=== PATIENT | male | born 1955 | race Caucasian/White ===

== ENCOUNTER 2017-09-28 22:58 | Inpatient (IN) | payer OTHER ==
[~2017-09-28] VITALS: Ht 185.4 cm; Wt 103.7 kg
--- NOTE | ~2017-09-28 | HC ---
[facility] [address] [place] [address] CONSULTATION Name: PLACIDO BERMUDEZ Room #: 351-P [facility] IN M.R.#: [id number] Admission: 09/29/17 Attend Phys: Andrade Nicole MD Discharge: Date of : 55 Report #: [id number] THIS REPORT FOR: //name// CC: Andrade Nicole Barry Akkulugari DATE OF SERVICE: 09/29/2017 CHIEF COMPLAINT: Multiple lower extremity ulcerations. HISTORY OF PRESENT ILLNESS: This is a 62-year-old male patient who presents from a local nursing care facility. He has sepsis type picture with multiple ulcerations to his lower extremities and gluteal region. He has a history of cardiac arrest in 02/2017 with a history of diabetes, COPD, congestive heart failure, atrial fibrillation. He had a previous spinal cord injury resulting in paraplegia. He has been bedridden. He denies any current fever or chills at this time. He is aware of the ulcerations, denies any significant pain. PAST MEDICAL HISTORY: Positive for history of cardiac arrest in 02/2017, COPD, congestive heart failure, atrial fibrillation, spinal cord injury in 2008, history of depression, constipation, gout, benign prostatic hypertrophy, neuropathy, arthritis, acute kidney injury, insomnia, depression, gastroesophageal reflux disease, hypertension. SOCIAL HISTORY: The patient has a significant history of smoking, currently smokes daily. Denies any alcohol use. FAMILY HISTORY: Noncontributory. REVIEW OF SYSTEMS: CONSTITUTIONAL: The patient denies fever or chills currently. ENT: The patient denies earache, nasal drainage or sore throat. EYES: The patient denies visual changes, redness or drainage. PULMONARY: The patient denies cough, shortness of breath. GASTROINTESTINAL: The patient denies nausea or abdominal pain. DERMATOLOGIC: The patient is aware of extensive ulcerations to both lower extremities. Other systems in a 14-point review of systems are negative. PHYSICAL EXAMINATION: VITAL SIGNS: At this time include pulse 86, respiration 20, blood pressure 143/62, and temperature 98.4. GENERAL: This is a well-developed, well-nourished male patient who appears to be in some discomfort. HEENT: Head normocephalic. [address] [address] CONSULTATION Name: PLACIDO BERMUDEZ Room #: 351-P ADM IN M.R.#: [id number] Admission: 09/29/17 Attend Phys: Andrade Nicole MD Discharge: Date of : 55 Report #: [id number] NECK: Supple. LUNGS: Diminished. HEART: Regular. ABDOMEN: Soft, nontender. EXTREMITIES: Demonstrate what appeared to be stage 4 pressure ulceration of the right gluteal region, multiple superficial ulcerations of the right lower leg, left lower leg, left heel, and what appears to be a stage 4 pressure ulceration of the left buttocks, as well as superficial ulcerations to the right anterior foot. He has significant cellulitic changes and extensive drainage from these areas. CLINICAL IMPRESSION: 1. Stage 4 pressure ulcerations of the buttocks and bilaterally, multiple superficial ulcerations of lower extremities, stage 3 pressure ulcer of the left heel. 2. Severe protein calorie malnutrition. 3. History of congestive heart failure. 4. Cellulitis, bilateral lower extremities. 5. Diabetes mellitus. RECOMMENDATIONS: At this point in time, the patient will need to be placed on the low air loss mattress, every 2 hour turning, repositioning. We will recommend gentamicin ointment with Xeroform gauze to all open areas. He will need to be bathed and get some of the crusted material off of his skin. He may benefit from some topical AmLactin. We will review this following getting him cleaned up a little bit. I think he will require surgical debridement. We may wish to also consider diverting colostomy and PEG tube placement to address his severe malnutrition. He will need aggressive nutritional support to maintain a maximized wound healing, as well as the good glycemic control. We will need Prevalon boots for pressure prophylaxis, both lower extremities. All questions have been answered. I appreciate being asked to see him in consultation. <ELECTRONICALLY SIGNED> By: Chandrakant Potter MD 09/30/17 0757 [id number] [id number] Chandrakant Potter MD /nt
--- NOTE | ~2017-09-28 | HC ---
[facility] [address] [place] [address] CONSULTATION Name: PLACIDO BERMUDEZ Room #: 236-P ADM IN M.R.#: [id number] Admission: 09/29/17 Attend Phys: Andrade Nicole MD Discharge: Date of : 55 Report #: [id number] THIS REPORT FOR: //name// CC: Andrade Mccarthym Akkulugari DATE OF SERVICE: 10/05/2017 TYPE OF REPORT: Pulmonary consultation. REFERRING PHYSICIAN: Andrade Nicole M.D. REASON FOR REFERRAL: Postop respiratory failure. HISTORY OF PRESENT ILLNESS: The patient is a 62-year-old white male with multiple medical problems including decubitus wounds, now status post surgery. He has failed to wean from mechanical ventilation. A pulmonary consultation was requested. Earlier today, the patient underwent excision and debridement of decubitus wounds. He was found to have stage 3 bilateral ischial tuberosity decubitus ulcer, bilateral venous stasis ulcers. Intraoperatively, the patient had a hemodynamic instability along with a cardiac arrest. He was resuscitated in the operating room. He was then stabilized. Portable chest x-ray shows a mild vascular congestion, cardiomegaly. Findings suggest heart failure. Presently sedated. PAST MEDICAL HISTORY: Notable for history of chronic lower extremity wounds, stage 4 gluteal ulcer, atrial fibrillation, history of heart failure, COPD, diabetes mellitus, past history of cardiac arrest, history of spinal cord injury, gout, benign prostatic hypertrophy, depression, osteoarthritis, history of chronic kidney disease, depression, gastroesophageal reflux disease and hypertension. PAST SURGICAL HISTORY: As mentioned above including colostomy with reversal back in 1998 for history of diverticulitis. ALLERGIES: None to medications. MEDICATIONS: List reviewed, is in the MAR. HOME MEDICATIONS: Include Colace, magnesium citrate, trazodone, vancomycin, gentamicin, citalopram, Lovenox, insulin, fluconazole, vitamin C, aspartame, [facility] [address] [place] [address] CONSULTATION Name: PLACIDO BERMUDEZ Room #: 236-P [facility] IN [facility]#: [id number] Admission: 09/29/17 Attend Phys: Andrade Nicole MD Discharge: Date of : 55 Report #: [id number] digoxin, diltiazem, iron sulfate, Lasix, hydrocodone, metoprolol, multivitamins, Zosyn, tamsulosin, Protonix, baclofen, diclofenac, gabapentin, zinc sulfate and albuterol. FAMILY HISTORY: Noncontributory. SOCIAL HISTORY: The patient smokes less than a pack a day. He is a resident at [facility]. No alcohol use. REVIEW OF SYSTEMS: As mentioned above, otherwise unable to obtain history as the patient is intubated. PHYSICAL EXAMINATION: GENERAL: He is sedated. VITAL SIGNS: Temperature is 97 degrees Fahrenheit, pulse is 80, respiratory rate is 16, blood pressure 130/80 mmHg and saturation 92%. HEENT: Unremarkable. NECK: Supple. CHEST: Breath sounds are fair bilaterally without any wheezes. Few scattered crackles bilaterally. CARDIOVASCULAR: Normal S1 and S2. There are no murmurs or gallop. There is no JVD. There is no carotid bruit. Pulses are 2+/4+ bilaterally. ABDOMEN: Soft. No masses felt. GENITOURINARY: Deferred. RECTAL: Deferred. EXTREMITIES: Notable for chronic stasis dermatitis changes in the lower extremities with multiple wounds. NEUROLOGICAL: Deferred. RADIOLOGICAL DATA: Chest x-ray shows mild bibasilar interstitial infiltrates, cardiomegaly and pulmonary vascular congestion. LABORATORY DATA: Arterial blood gas earlier today showed pH 7.20, pCO2 of 67 and pO2 86 on 100% FiO2. Electrolytes are normal on 10/03/2017. Hemoglobin 9; WBC 11,100 and platelets are normal. Albumin 2.0. IMPRESSION: 1. Respiratory failure in this 62-year-old white male status post decubitus wound surgery. Intraoperatively, the patient developed cardiac arrest. Chest x-ray suggests heart failure. We will defer weaning until tomorrow. 2. Severe peripheral artery disease, multiple nonhealing lower extremity wounds, decubitus wounds involving the sacrum, stage 4. 3. Permanent atrial fibrillation, anticoagulation on hold. 4. Recent echocardiogram showed ejection fraction is normal, normal left ventricular function but dilated right and left atrium [place] [address] CONSULTATION Name: PLACIDO BERMUDEZ Room #: 236-P ADM IN M.R.#: [id number] Admission: 09/29/17 Attend Phys: Andrade Nicole MD Discharge: Date of : 55 Report #: [id number] 5. Hypertension. 6. Diabetes mellitus type 2. 7. History of chronic obstructive pulmonary disease, severity unknown. 8. Gastroesophageal reflux disease. 9. History of depression. RECOMMENDATIONS: We will continue mechanical ventilation, reassess in the morning. We would also consider gentle diuresis. Cardiology has been consulted regarding his intraoperative cardiac arrest. Echocardiogram finding noted. The patient is suspected to have CO2 embolism as a cause. CT head was unremarkable. DVT and GI prophylaxis recommended. Bronchodilators will be initiated for his COPD. Thank you for this consultation. <ELECTRONICALLY SIGNED> By: Martinez Kasper MD 10/07/17 1713 1533 [id number] Martinez Kasper MD /nt
--- NOTE | ~2017-09-28 | HC ---
[facility] [address] [address] CONSULTATION Name: PLACIDO MONTENEGRO Room #: 351-P ADM IN M.R.#: [id number] Admission: 09/29/17 Attend Phys: Andrade Nicole MD Discharge: Date of : 55 Report #: [id number] THIS REPORT FOR: //name// CC: Andrade Nicole Barry Akkulugari DATE OF SERVICE: 09/29/2017 Infectious Disease Consultation ATTENDING PHYSICIAN: Placido Montenegro. REASON FOR CONSULTATION: HISTORY OF PRESENT ILLNESS: A 62-year-old white man with decubitus ulceration in gluteal area and the left lower extremity. He is admitted through the emergency room with complaint of increasing weakness. PAST MEDICAL HISTORY: 1. COPD 2. Congestive heart failure. 3. Chronic atrial fibrillation. 4. Spinal cord injury in 2008 with chronic disease and decubitus ulceration, left lower extremity and gluteal area, stage 4, on the right. ALLERGIES: None listed. MEDICATIONS: The patient is on treatment with insulin glargine, citalopram, enoxaparin, hydrocodone bitartrate p.r.n., potassium chloride supplementation, ascorbic acid, multivitamin with mineral, lactobacillus acidophilus, furosemide, venlafaxine, trazodone, diltiazem, metoprolol, cholestyramine, digoxin, ferrous sulfate, tamsulosin, vancomycin 1 gram IV every 8 hours, Zosyn 3.37 grams IV every 8 hours, zinc sulfate, pantoprazole, gabapentin, diclofenac, baclofen p.r.n., glucose Glucagon. SOCIAL HISTORY: See H and P, old records. FAMILY HISTORY: See H and P, old records. REVIEW OF SYSTEMS: As above and see ER records. PHYSICAL EXAMINATION: GENERAL: Chronically ill-appearing white man. VITAL SIGNS: Temperature 98.1, pulse 93, respirations 18, BP 107/47. On admission, it was as low as 73/36. HEENT: Pupils reactive. Mouth: Severe periodontal disease. [facility] [address] [place] [address] CONSULTATION Name: PLACIDO MONTENEGRO Room #: 351- ADM IN M.R.#: [id number] Admission: 09/29/17 Attend Phys: Andrade Nicole MD Discharge: Date of : 55 Report #: [id number] mucous membranes. NECK: Supple. LUNGS: Clear. HEART: S1, S2. Irregular rhythm. No murmur or aortic focus. ABDOMEN: Surgical scars of previous surgery for diverticulitis and colostomy takedown. BACK: Stage 1 to 2 decubitus left gluteal area, stage 3 to 4 decubitus right gluteal area. EXTREMITIES: Reveal flexure contracture at the knee levels and chronic superficial ulcerations, left lower extremities, extensive lesions of gluteal and groin areas. NEUROLOGIC: Paraparesis, paraplegia. LABORATORY DATA: Sodium 133, potassium 4.5, BUN 10, creatinine 0.7, glucose 186. Albumin 2.2. WBC on admission 38712, on repeat today 58538, hemoglobin 9.1 g/dL, platelets [id number]. MICROBIOLOGY DATA: The decubitus and blood cultures are negative or pending at the time of this dictation. IMAGING DATA: Pelvis x-rays were obtained. Inferior vena cava filter: No acute process. Chest x-ray: Right basilar atelectasis, infiltrate, and cardiomegaly. ASSESSMENT: 1. Stage IV right gluteal decubitus, stage 2 left gluteal decubitus, superficial ulceration, left leg. 2. Question right basilar atelectasis, infiltrate. 3. Malnutrition. 4. Leukocytosis. 5. Anemia of chronic disease. SUGGESTIONS: Recommend continued local wound care, vacuum device per wound care team. Continue vancomycin and Zosyn while awaiting culture results. Add Diflucan orally and Lotrisone cream topically b.i.d. Dr. Nicole, thank you for requesting my suggestions. <ELECTRONICALLY SIGNED> By: Dipak Emmanuel MD 09/30/17 1017 1239 0244 Dipak Emmanuel MD /nt
--- NOTE | ~2017-09-28 | EKG ---
[address] [place] [address] ELECTROCARDIOGRAM REPORT Name: PLACIDO BERMUDEZ Room #: 351-P ADM IN M.R.#: [id number] Admission: 09/29/17 Attend Phys: Andrade Nicole MD Discharge: Date of : 55 Report #: [id number] THIS REPORT FOR: //name// [facility] Test Date: 2017-09-30 Test Time: 14:11:33 Pat Name: PLACIDO BERMUDEZ Department: Room: 351 P Gender: M Insurance Claims Clerk: Florian HITCHCOCK : 1955 Requested By: Phil Red Order Number: [id number] MD: Desean Werner Measurements Intervals [place] Rate: 69 P: [place]: QRS: 2 QRSD: 92 T: 241 QT: 345 QTc: 370 Interpretive Statements Atrial fibrillation Borderline low voltage, extremity leads Nonspecific ST segment abnormality Compared to ECG 09/28/2017 23:26:38 no significant change was found Electronically Signed On 10-01-2017 8:44:54 CDT by Desean Werner [email or web address] <ELECTRONICALLY SIGNED> By: Desean Werner MD, [facility] 10/01/17 0844 1411 1411 Desean Werner MD, [facility] /EPI
--- NOTE | ~2017-09-28 | EKG ---
[address] [place] [address] ELECTROCARDIOGRAM REPORT Name: PLACIDO BERMUDEZ Room #: 349-I ADM IN M.R.#: [id number] Admission: 09/29/17 Attend Phys: Andrade Nicole MD Discharge: Date of : 55 Report #: [id number] THIS REPORT FOR: //name// [facility] ED Test Date: 2017-09-28 Test Time: 23:26:38 Pat Name: PLACIDO BERMUDEZ Department: Room: 349 Gender: M Tongue And Quarter Stitcher: ANTHONY : 1955 Requested By: Darlin Burgess Order Number: [id number] MD: Desean Werner Measurements Intervals [place] Rate: 88 P: [place]: QRS: 6 QRSD: 104 T: 177 QT: 328 QTc: 397 Interpretive Statements Atrial fibrillation Low voltage, precordial leads Nonspecific repol abnormality, diffuse leads No previous ECG available for comparison Electronically Signed On 09-29-2017 7:51:22 CDT by Desean Werner [email or web address] <ELECTRONICALLY SIGNED> By: Desean Werner MD, [facility] 09/29/17 0751 D: 08/2325 25 Desean Werner MD, FACC /EPI
--- NOTE | ~2017-09-28 | 2DMMODE ---
[facility] [address] [place] [address] 2 D/M-MODE ECHOCARDIOGRAM Name: PLACIDO BERMUDEZ Room #: 351-P ADM IN .R.#: [id number] Admission: 09/29/17 Attend Phys: Andrade Nicole MD Discharge: Date of : 55 Date of Service: 09/30/17 1537 Report #: [id number] THIS REPORT FOR: //name// APPROVED REPORT Study performed: 09/30/2017 14:17:03 EXAM: Comprehensive 2D, Doppler, and color-flow Echocardiogram Patient Location: Bedside Room #: 351 Status: routine BSA: 2.23 HR: 68 bpm BP: 126/73 mmHg Other Information Study Quality: Adequate/Technically Difficult Technically limited study due to Very limited patient mobility. Indications Congestive Heart Failure COPD Diabetes Atrial Fibrillation Hypertension/HDD 2D Dimensions RVDd: 41.13 mm LVEF(%): 51.88 (>50%) IVSd: 16.39 (7-11mm) LVOT Diam: 21.20 (18-24mm) LVDd: 47.91 mm PWd: 16.86 (7-11mm) Ascending Ao: 35.08 (22-36mm) LVDs: 35.19 (25-40mm) Aortic Root: 33.22 mm IVC: 38.00 mm Wang's LVEF: 51.88 % Volumes Left Atrial Volume (Systole) Single Plane 4CH: 126.51 mL Single Plane 2CH: 152.45 mL LA ESV Index: 68.00 mL/m2 Aortic Valve AoV Peak Sincere.: 2.40 m/s AO Peak Gr.: 23.13 mmHg LVOT Max P.84 mmHg AO Mean Gr.: 10.27 mmHg LVOT Mean P.48 mmHg [facility] [place] [address] 2 D/M-MODE ECHOCARDIOGRAM Name: BERMUDEZPLACIDO Room #: 351-P [facility] IN M.R.#: [id number] Admission: 09/29/17 Attend Phys: Andrade Nicole MD Discharge: Date of : 55 Date of Service: 09/30/17 1537 Report #: [id number] AO V2 Mean: 1.42 m/s LVOT Max V: 1.31 m/s AO V2 VTI: 42.72 cm LVOT Mean V: 0.84 m/s CHRIS (VTI): 2.08 cm2 LVOT V1 VTI: 25.20 cm CHRIS Vmax: 1.91 cm2 SV (LVOT): 88.86 mL Mitral Valve MV Decel. Time: 215.02 ms MV E Max Sincere.: 1.41 m/s IVRT: 55.36 ms Pulmonary Valve PV Peak Sincere.: 1.37 m/s PV Peak Gr.: 7.56 mmHg Tricuspid Valve TR Peak Sincere.: 3.18 m/s RAP Estimate: 15.00 mmHg TR Peak Gr.: 40.38 mmHg PA Pressure: 55.00 mmHg Left Ventricle The left ventricle is normal size. Moderate concentric left ventricular hypertrophy. The left ventricular systolic function is normal. The left ventricular ejection fraction is within the normal range. LVEF is 60-65%. This study is not technically sufficient to allow evaluation of the LV diastolic function due to atrial fibrillation. Right Ventricle Right ventricle is dilated. The right ventricular systolic function is normal. Atria Left atrium is severely dilated. Right atrium is severely dilated. Aortic Valve Aortic valve is mildly calcified. Trace aortic regurgitation. There is mild valvular aortic stenosis. Calculated aortic valve area is 1.9 cm2 with maximum pressure gradient of 10 mmHg and mean pressure gradient of 23 mmHg. Mitral Valve Mild mitral annular calcification. Mild mitral regurgitation. No evidence of mitral valve stenosis. Tricuspid Valve [facility] [address] [place] [address] 2 D/M-MODE ECHOCARDIOGRAM Name: PLACIDO BERMUDEZ Room #: 351-P [facility] IN ..#: [id number] Admission: 09/29/17 Attend Phys: Andrade Nicole MD Discharge: Date of : 55 Date of Service: 09/30/17 1537 Report #: [id number] The tricuspid valve is normal in structure. Mild to moderate tricuspid regurgitation. PAP is estimated at 55 mmHg. Pulmonic Valve Pulmonic valve is not well visualized. Trace to mild pulmonic regurgitation. Great Vessels The aortic root is normal in size. IVC is dilated and collapses <50% with inspiration. Pericardium There is no pericardial effusion. <Conclusion> The left ventricle is normal size. LVEF is 60-65%. Right ventricle is dilated. The right ventricular systolic function is normal. Left atrium is severely dilated. Right atrium is severely dilated. Aortic valve is mildly calcified. Trace aortic regurgitation. There is mild valvular aortic stenosis. Calculated aortic valve area is 1.9 cm2 with maximum pressure gradient of 10 mmHg and mean pressure gradient of 23 mmHg. Mild mitral annular calcification. Mild mitral regurgitation. The tricuspid valve is normal in structure. Mild to moderate tricuspid regurgitation. PAP is estimated at 55 mmHg. Pulmonic valve is not well visualized. Trace to mild pulmonic regurgitation. There is no pericardial effusion. <ELECTRONICALLY SIGNED> By: Jordy Bird MD 09/30/17 1537 1537 1537 Jordy Bird MD /INF
--- NOTE | ~2017-09-28 | 2DMMODE ---
[address] [address] 2 D/M-MODE ECHOCARDIOGRAM Name: PLACIDO BERMUDEZ Room #: 236-P ADM IN M.R.#: [id number] Admission: 09/29/17 Attend Phys: Andrade Nicole MD Discharge: Date of : 55 Date of Service: 10/05/17 1256 Report #: [id number] THIS REPORT FOR: //name// APPROVED REPORT Study performed: 10/05/2017 11:43:35 EXAM: Limited 2D, Doppler, and color-flow Echocardiogram Patient Location: OR Status: STAT BSA: 2.28 Rhythm: Atrial Fibrillation Other Information Study Quality: Fair Indications STAT echo in OR to look for air in right atrium. Status post CODE. Left Ventricle The left ventricle is normal size. Air bubbles noted in left ventricle. Mild concentric left ventricular hypertrophy. Left ventricular systolic function is normal. Right Ventricle Right ventricle is dilated. Atria Left atrium is dilated. Air bubbles noted in left atrium. No evidence of PFO with color doppler. Right atrium is dilated. Air bubbles noted in right atrium. Aortic Valve The aortic valve was not visualized. Mitral Valve Mild mitral annular calcification. Tricuspid Valve The tricuspid valve is normal in structure. Pericardium There is no pericardial effusion. [address] [address] 2 D/M-MODE ECHOCARDIOGRAM Name: PLACIDO BERMUDEZ Room #: 236-P ADM IN M.R.#: [id number] Admission: 09/29/17 Attend Phys: Andrade Nicole MD Discharge: Date of : 55 Date of Service: 10/05/176 Report #: [id number] Critical Notification Critical Value: Yes Physician Notified Date: 10/05/2017 Time: 12:55 <Conclusion> Limited/abbreviated study Left ventricular systolic function is normal. Right ventricle is dilated and hypokinetic Both atria are dilated. Spontaneous contrast noted in all four chambers Mild mitral annular calcification. There is no pericardial effusion. <ELECTRONICALLY SIGNED> By: Desean Werner MD, FACC 10/05/17 1256 1256 55 Desean Werner MD, FACC /INF
[2017-09-28 23:00] VITALS: BP 73/36
[2017-09-29 00:06] LABS: HEMOGLOBIN 10.2 gm/dL (14.0-18.0); MCH 23.9 pg (26.0-34.0); MCV 77.1 fL (80.0-100.0); PLATELET COUNT 495 thou/uL (150-400); RBC 4.28 mil/uL (4.50-6.00); RDW 18.5 % (10.5-14.5); WBC 20.8 thou/uL (4.0-11.0)
[2017-09-29 00:15] LABS: ANION GAP 8 mmol/L (7-16); BUN 10 mg/dL (7-18); CALCIUM 9.1 mg/dL (8.5-10.1); CHLORIDE 99 mmol/L (98-107); CO2 25 mmol/L (21-32); CREATININE 0.7 mg/dL (0.7-1.3); GLUCOSE 116 mg/dL (74-106); POTASSIUM 4.2 mmol/L (3.5-5.1); SODIUM 132 mmol/L (136-145)
[2017-09-29 00:24] LABS: ABSOLUTE NEUTROPHILS 18.5 thou/uL (1.4-8.2); ANISOCYTOSIS 2+; HYPOCHROMASIA 1+; POLYCHROMASIA 1+
[2017-09-29 00:25] LABS: TROPONIN-I <0.06 ng/mL (<0.06)
[2017-09-29 01:03] LABS: ALBUMIN 2.2 g/dL (3.4-5.0); DIRECT BILIRUBIN 0.2 mg/dL (<0.1-0.3); TOTAL BILIRUBIN 0.5 mg/dL (<0.1-1.0); TOTAL PROTEIN 7.9 g/dL (6.4-8.2)
[2017-09-29] MEDS ORDERED: BUTRANS1 EAC1 TD (02:19)
[2017-09-29] MEDS ORDERED: ACIDOPHILUS1 EAC4 PO (02:19)
[2017-09-29] MEDS ORDERED: DIGOXIN250 MCG PO (02:20)
[2017-09-29] MEDS ORDERED: CELEXA20 MG PO (02:20)
[2017-09-29] MEDS ORDERED: LASIX 20 MG TAB20 MG PO (02:21)
[2017-09-29] MEDS ORDERED: DILTIAZEM HCL90 MG PO (02:21)
[2017-09-29] MEDS ORDERED: CENTRUM SILVER1 EAC4 PO (02:22)
[2017-09-29] MEDS ORDERED: INCRUSE ELLI62.5 MCG IH (02:22)
[2017-09-29] MEDS ORDERED: POTASSIUM20 PO (02:23)
[2017-09-29] MEDS ORDERED: VITAMINC500 PO (02:23)
[2017-09-29] MEDS ORDERED: QUESTRAN PACKET4 GM PO (02:24)
[2017-09-29] MEDS ORDERED: FLORANEX TABLE1 EACH PO (02:24)
[2017-09-29] MEDS ORDERED: PROTONIX40 M4 PO (02:25)
[2017-09-29] MEDS ORDERED: LOPRESSOR25 PO (02:25)
[2017-09-29] MEDS ORDERED: IRON325 PO (02:26)
[2017-09-29] MEDS ORDERED: NEURONTIN 300300 M1 PO (02:26)
[2017-09-29] MEDS ORDERED: LIORESAL 10 MG10 MG PO (02:26)
[2017-09-29] MEDS ORDERED: TRAZODONE HCL100 MG PO (02:27)
[2017-09-29] MEDS ORDERED: FLOMAX0.4 MG PO (02:27)
[2017-09-29] MEDS ORDERED: BENADRYL25 MG PO (02:27)
[2017-09-29] MEDS ORDERED: ONDANSETRON HCL4 M2 PO (02:28)
[2017-09-29] MEDS ORDERED: LOPERAMIDE 2 MG2 M1 PO (02:28)
[2017-09-29] MEDS ORDERED: EFFEXOR XR75 MG PO (02:29)
[2017-09-29] MEDS ORDERED: NORCO 5-325 TA1 EACH PO (02:30)
[2017-09-29] MEDS ORDERED: LEVSIN0.125 MG PO (02:31)
[2017-09-29] MEDS ORDERED: ALBUTEROL2.5 MG/31 INH (02:32)
[2017-09-29] MEDS ORDERED: LEVEMIR SUBQ (02:32)
[2017-09-29] MEDS ORDERED: NOVOLOG100 UNIT/1 SUBQ (02:33)
[2017-09-29] MEDS ORDERED: VOLTAREN GEL 1100 G2 TOP (02:34)
[2017-09-29 02:35] VITALS: BP 132/60
[2017-09-29] MEDS ORDERED: UNGUENTINE OINT28 GM TOP (02:35)
[2017-09-29 02:36] VITALS: BP 126/53
[2017-09-29 06:00] LABS: HEMATOCRIT 29.9 % (42.0-52.0); HEMOGLOBIN 9.1 gm/dL (14.0-18.0); MCH 23.8 pg (26.0-34.0); MCHC 30.5 g/dL (28.0-37.0); MCV 77.9 fL (80.0-100.0); RBC 3.84 mil/uL (4.50-6.00); RDW 17.9 % (10.5-14.5)
[2017-09-29 06:11] LABS: CALCIUM 8.1 mg/dL (8.5-10.1); CREATININE 0.7 mg/dL (0.7-1.3); POTASSIUM 4.5 mmol/L (3.5-5.1)
[2017-09-29 08:07] VITALS: BP 107/47
[2017-09-29 12:54] VITALS: BP 110/52
[2017-09-29 17:23] VITALS: BP 131/67
[2017-09-29 20:45] VITALS: BP 143/62
[2017-09-30 05:31] VITALS: BP 103/55
[2017-09-30 07:25] VITALS: BP 126/73
[2017-09-30 08:59] LABS: CALCIUM 8.3 mg/dL (8.5-10.1); CREATININE 0.7 mg/dL (0.7-1.3)
[2017-09-30 10:02] LABS: EOSINOPHILS 0.5 % (0.0-3.0); MCH 24.1 pg (26.0-34.0); MCHC 30.6 g/dL (28.0-37.0)
[2017-09-30 10:03] LABS: ABSOLUTE NEUTROPHILS 8.8 thou/uL (1.4-8.2); BASOPHILS 0.4 % (0.0-2.0); HEMATOCRIT 30.3 % (42.0-52.0); HEMOGLOBIN 9.3 gm/dL (14.0-18.0); LYMPHOCYTES 6.6 % (24.0-44.0); MCV 78.8 fL (80.0-100.0); MONOCYTES 6.2 % (1.0-8.0); PLATELET COUNT 388 thou/uL (150-400); POLYS 86.3 % (36.0-66.0); RBC 3.84 mil/uL (4.50-6.00); WBC 10.2 thou/uL (4.0-11.0)
[2017-09-30 13:21] VITALS: BP 108/53
[2017-09-30 15:54] VITALS: BP 100/54
[2017-09-30 19:15] VITALS: BP 110/62
[2017-10-01 03:35] VITALS: BP 122/70
[2017-10-01 07:34] VITALS: BP 134/85
[2017-10-01 09:29] LABS: APTT 25.2 Seconds (24.5-32.8); INR 1.1; PROTIME 10.9 Seconds (9.3-11.4)
[2017-10-01 12:01] VITALS: BP 110/65
[2017-10-01 16:49] VITALS: BP 120/73
[2017-10-01 19:16] VITALS: BP 126/65
[2017-10-02 03:11] VITALS: BP 130/79
[2017-10-02 06:26] LABS: HEMATOCRIT 29.2 % (42.0-52.0); HEMOGLOBIN 9.1 gm/dL (14.0-18.0); MCH 24.3 pg (26.0-34.0); MCHC 31.2 g/dL (28.0-37.0); MCV 77.9 fL (80.0-100.0); RBC 3.74 mil/uL (4.50-6.00); RDW 18.4 % (10.5-14.5); WBC 9.8 thou/uL (4.0-11.0)
[2017-10-02 06:33] LABS: CALCIUM 8.3 mg/dL (8.5-10.1); CREATININE 0.6 mg/dL (0.7-1.3); POTASSIUM 4.5 mmol/L (3.5-5.1)
[2017-10-02 07:20] VITALS: BP 148/88
[2017-10-02 11:29] VITALS: BP 133/74
[2017-10-02 16:18] VITALS: BP 117/65
[2017-10-02 19:55] VITALS: BP 136/73
[2017-10-03 03:31] VITALS: BP 147/81
[2017-10-03 07:32] LABS: MCH 23.6 pg (26.0-34.0); MCHC 29.9 g/dL (28.0-37.0); MCV 78.8 fL (80.0-100.0); RBC 3.81 mil/uL (4.50-6.00); RDW 18.6 % (10.5-14.5); WBC 11.1 thou/uL (4.0-11.0)
[2017-10-03 07:50] LABS: CALCIUM 8.4 mg/dL (8.5-10.1); CREATININE 0.7 mg/dL (0.7-1.3); POTASSIUM 4.8 mmol/L (3.5-5.1); TOTAL BILIRUBIN 0.1 mg/dL (<0.1-1.0); TOTAL PROTEIN 6.5 g/dL (6.4-8.2)
[2017-10-03 07:56] VITALS: BP 149/85
[2017-10-03 11:27] VITALS: BP 152/93
[2017-10-03 15:02] VITALS: BP 126/58
[2017-10-03 20:15] VITALS: BP 150/85
[2017-10-04 04:20] VITALS: BP 150/80
[2017-10-04 08:29] VITALS: BP 141/69
[2017-10-04 11:25] VITALS: BP 131/68
[2017-10-04 15:19] VITALS: BP 147/75
[2017-10-04 19:51] VITALS: BP 140/79
[2017-10-05 03:27] VITALS: BP 122/68
[2017-10-05 07:19] VITALS: BP 139/60
[2017-10-05 09:43] VITALS: BP 136/58
[2017-10-05 11:51] LABS: BE(vivo) -2.8 mmol/L (-2 to +3); sO2 94.1 % (92.0-98.0)
[2017-10-05 11:52] LABS: PCO2 67.3 mmHg (35.0-45.0); pH 7.205 (7.360-7.450)
[2017-10-05 12:04] LABS: HEMATOCRIT 33.4 % (42.0-52.0); HEMOGLOBIN 9.9 gm/dL (14.0-18.0); MCH 23.7 pg (26.0-34.0); MCHC 29.7 g/dL (28.0-37.0); MCV 80.1 fL (80.0-100.0); RBC 4.18 mil/uL (4.50-6.00); RDW 19.1 % (10.5-14.5); WBC 22.1 thou/uL (4.0-11.0)
[2017-10-05 13:12] LABS: BE(vivo) 1.5 mmol/L (-2 to +3); HCO3 26.9 mmol/L (22.0-26.0); PCO2 45.6 mmHg (35.0-45.0); PO2 190.7 mmHg (80.0-100.0); pH 7.388 (7.360-7.450); sO2 99.3 % (92.0-98.0)
[2017-10-06 05:25] LABS: BE(vivo) 5.1 mmol/L (-2 to +3); HCO3 28.8 mmol/L (22.0-26.0); PCO2 38.6 mmHg (35.0-45.0); PO2 141.7 mmHg (80.0-100.0)
[2017-10-06 05:48] LABS: ABSOLUTE NEUTROPHILS 13.7 thou/uL (1.4-8.2); BASOPHILS 0.1 % (0.0-2.0); EOSINOPHILS 0.1 % (0.0-3.0); HEMATOCRIT 29.8 % (42.0-52.0); MCH 23.8 pg (26.0-34.0); MCHC 30.4 g/dL (28.0-37.0); MCV 78.3 fL (80.0-100.0); MONOCYTES 6.2 % (1.0-8.0); POLYS 86.6 % (36.0-66.0); RBC 3.81 mil/uL (4.50-6.00); RDW 18.7 % (10.5-14.5); WBC 15.8 thou/uL (4.0-11.0)
[2017-10-06 05:50] LABS: ALBUMIN 1.9 g/dL (3.4-5.0); CALCIUM 8.5 mg/dL (8.5-10.1); CREATININE 0.6 mg/dL (0.7-1.3); MAGNESIUM 1.9 mg/dL (1.8-2.4); PLATELET COUNT 468 thou/uL (150-400); POTASSIUM 3.8 mmol/L (3.5-5.1); TOTAL BILIRUBIN 0.3 mg/dL (<0.1-1.0); TOTAL PROTEIN 6.6 g/dL (6.4-8.2)
[2017-10-06 09:00] LABS: BE(vivo) 1.8 mmol/L (-2 to +3); HCO3 25.1 mmol/L (22.0-26.0); PCO2 34.5 mmHg (35.0-45.0); PO2 175.8 mmHg (80.0-100.0); sO2 99.3 % (92.0-98.0)
[2017-10-06 18:11] VITALS: BP 106/63
[2017-10-06 19:00] VITALS: BP 108/61
[2017-10-06 20:30] VITALS: BP 113/59
[2017-10-06 21:00] VITALS: BP 122/59
[2017-10-06 22:00] VITALS: BP 121/70
[2017-10-06 23:00] VITALS: BP 122/77
[2017-10-07] VITALS (19 sets, daily range): BP systolic 98–141; BP diastolic 61–86
[2017-10-08] VITALS (8 sets, daily range): BP systolic 97–125; BP diastolic 59–68
[2017-10-08] MEDS ORDERED: ZOSYN 3.3753.375 GM IV (08:20)
[2017-10-08] MEDS ORDERED: FLUCONAZOLE 10100 MG PO (08:20)
[2017-10-08] MEDS ORDERED: CLOPIDOGREL75 MG PO (08:21)
[2017-10-08] MEDS ORDERED: XARELTO10 MG PO (08:30)
== END 2017-10-08 13:52 | DRG 853 ==
LOC: ER 22:58 → EROBS 09-29 01:27 → 3W 09-29 01:27 → ICU 10-05 12:41 → 4E 10-08 06:36
PROVIDERS: Anesthesiology; Emergency Medicine; Hospitalist; Internal Medicine; Internal Medicine Pulmonary Disease; Nurse Practitioner Family; Surgery
PROC: B548ZZA Ultrasonography of Superior Vena Cava, Guidance (ICD-10-PCS; principal; 2017-10-03)
PROC: 02HV33Z Insertion of Infusion Device into Superior Vena Cava, Percutaneous Approach (ICD-10-PCS; principal; 2017-10-03)
PROC: 0DJD4ZZ Inspection of Lower Intestinal Tract, Percutaneous Endoscopic Approach (ICD-10-PCS; 2017-10-05)
PROC: 5A1935Z Respiratory Ventilation, Less than 24 Consecutive Hours (ICD-10-PCS; 2017-10-05)
PROC: 0BH17EZ Insertion of Endotracheal Airway into Trachea, Via Natural or Artificial Opening (ICD-10-PCS; 2017-10-05)
PROC: 0KBT0ZZ Excision of Left Lower Leg Muscle, Open Approach (ICD-10-PCS; 2017-10-05)
PROC: 047L3DZ Dilation of Left Femoral Artery with Intraluminal Device, Percutaneous Approach (ICD-10-PCS; 2017-10-07)
PROC: 047J3DZ Dilation of Left External Iliac Artery with Intraluminal Device, Percutaneous Approach (ICD-10-PCS; 2017-10-07)
PROC: 047H3DZ Dilation of Right External Iliac Artery with Intraluminal Device, Percutaneous Approach (ICD-10-PCS; 2017-10-07)
DX: A41.9 Sepsis, unspecified organism (principal); L89.324 Pressure ulcer of left buttock, stage 4; L89.314 Pressure ulcer of right buttock, stage 4; L89.623 Pressure ulcer of left heel, stage 3; L89.154 Pressure ulcer of sacral region, stage 4; E43 Unspecified severe protein-calorie malnutrition; J96.02 Acute respiratory failure with hypercapnia; J96.01 Acute respiratory failure with hypoxia; L03.116 Cellulitis of left lower limb; L03.115 Cellulitis of right lower limb; G82.20 Paraplegia, unspecified; J98.11 Atelectasis; J44.9 Chronic obstructive pulmonary disease, unspecified; I50.9 Heart failure, unspecified; I48.91 Unspecified atrial fibrillation; F32.9 Major depressive disorder, single episode, unspecified; K59.00 Constipation, unspecified; G62.9 Polyneuropathy, unspecified; M19.90 Unspecified osteoarthritis, unspecified site; I95.9 Hypotension, unspecified; G47.00 Insomnia, unspecified; K21.9 Gastro-esophageal reflux disease without esophagitis; E11.51 Type 2 diabetes mellitus with diabetic peripheral angiopathy without gangrene; I48.2 Chronic atrial fibrillation; F17.210 Nicotine dependence, cigarettes, uncomplicated; K80.80 Other cholelithiasis without obstruction; K05.6 Periodontal disease, unspecified; L98.9 Disorder of the skin and subcutaneous tissue, unspecified; T14.8XXA Other injury of unspecified body region, initial encounter; Z79.899 Other long term (current) drug therapy; Z68.30 Body mass index [BMI] 30.0-30.9, adult; X58.XXXA Exposure to other specified factors, initial encounter; Y93.89 Activity, other specified; Y99.8 Other external cause status; Y92.89 Other specified places as the place of occurrence of the external cause; N40.1 Benign prostatic hyperplasia with lower urinary tract symptoms; I87.2 Venous insufficiency (chronic) (peripheral)
CPT/HCPCS: 10078; 10879; 27000; 50101; 50249; 50386; 50403; 50555; 50962; 52265; 52266; 53307; 53310; 54118; 56462; 56524; 56526; 62110; 62900; 65045; 65120

== ENCOUNTER → 2017-11-03 | Outpatient (CLI) | payer OTHER ==
[~2017-11-03] VITALS: Ht 182.9 cm; Wt 104.3 kg
[~2017-11-03] MED LIST: ACCUNEB SO1.25 MG/1 INH; ACIDOPHILUS1 EAC4 PO; ALBUTEROL2.5 MG/31 INH; BENADRYL25 MG PO; BUTRANS1 EAC1 TD; CELEXA20 MG PO; CENTRUM SILVER1 EAC4 PO; CLOPIDOGREL75 MG PO; DIGOXIN250 MCG PO; DILTIAZEM HCL90 MG PO; EFFEXOR XR75 MG PO; FLOMAX0.4 MG PO; FLORANEX TABLE1 EACH PO; FLUCONAZOLE 10100 MG PO; INCRUSE ELLI62.5 MCG IH; IRON325 PO; LASIX 20 MG TAB20 MG PO; LEVEMIR SUBQ; LEVSIN0.125 MG PO; LIORESAL 10 MG10 MG PO; LOPERAMIDE 2 MG2 M1 PO; LOPRESSOR25 PO; MORPHINE SULFAT45 MG PO; NEURONTIN 300300 M1 PO; NORCO 5-325 TA1 EACH PO; NOVOLOG100 UNIT/1 SUBQ; ONDANSETRON HCL4 M2 PO; POTASSIUM20 PO; PROTONIX40 M4 PO; QUESTRAN PACKET4 GM PO; TRAZODONE HCL100 MG PO; TYLENOL EXTRA500 MG PO; UNGUENTINE OINT28 GM TOP; VITAMINC500 PO; VOLTAREN GEL 1100 G2 TOP; XARELTO10 MG PO; ZOSYN 3.3753.375 GM IV
[2017-11-03 07:43] VITALS: BP 133/73
[2017-11-03 07:45] LABS: HEMATOCRIT 35.5 % (42.0-52.0); HEMOGLOBIN 11.2 gm/dL (14.0-18.0); MCH 25.3 pg (26.0-34.0); MCHC 31.6 g/dL (28.0-37.0); MCV 79.8 fL (80.0-100.0); RBC 4.45 mil/uL (4.50-6.00); RDW 20.7 % (10.5-14.5); WBC 8.8 thou/uL (4.0-11.0)
[2017-11-03 07:57] LABS: CALCIUM 9.6 mg/dL (8.5-10.1); CREATININE 0.6 mg/dL (0.7-1.3)
[2017-11-03 10:18] VITALS: BP 109/64
[2017-11-03 11:02] VITALS: BP 126/66
[2017-11-03 11:24] VITALS: BP 118/77
== END | disposition home or self-care (01) ==
LOC: SPEC 10-15 07:41
PROVIDERS: Nuclear Medicine Nuclear Cardiology
DX: I70.211 Atherosclerosis of native arteries of extremities with intermittent claudication, right leg (principal); I74.3 Embolism and thrombosis of arteries of the lower extremities; L97.919 Non-pressure chronic ulcer of unspecified part of right lower leg with unspecified severity; I13.0 Hypertensive heart and chronic kidney disease with heart failure and stage 1 through stage 4 chronic kidney disease, or unspecified chronic kidney disease; E11.22 Type 2 diabetes mellitus with diabetic chronic kidney disease; N18.9 Chronic kidney disease, unspecified; N17.9 Acute kidney failure, unspecified; I50.9 Heart failure, unspecified; I25.10 Atherosclerotic heart disease of native coronary artery without angina pectoris; I48.91 Unspecified atrial fibrillation; N40.0 Benign prostatic hyperplasia without lower urinary tract symptoms; J44.9 Chronic obstructive pulmonary disease, unspecified; F32.9 Major depressive disorder, single episode, unspecified; G62.9 Polyneuropathy, unspecified; M19.90 Unspecified osteoarthritis, unspecified site; K21.9 Gastro-esophageal reflux disease without esophagitis; M10.9 Gout, unspecified; F17.200 Nicotine dependence, unspecified, uncomplicated; Z98.890 Other specified postprocedural states; Z79.899 Other long term (current) drug therapy; Z79.01 Long term (current) use of anticoagulants; Z79.891 Long term (current) use of opiate analgesic

== ENCOUNTER 2017-12-24 14:15 | Emergency (ER) | payer OTHER ==
[~2017-12-24] VITALS: Ht 185.4 cm; Wt 104.3 kg
[2017-12-24 15:29] LABS: HEMOGLOBIN 8.2 gm/dL (14.0-18.0); MCV 75.7 fL (80.0-100.0)
[2017-12-24 15:30] LABS: ABSOLUTE NEUTROPHILS 4.1 thou/uL (1.4-8.2); BASOPHILS 1.1 % (0.0-2.0); EOSINOPHILS 4.1 % (0.0-3.0); LYMPHOCYTES 30.1 % (24.0-44.0); MCHC 31.7 g/dL (28.0-37.0); MONOCYTES 9.6 % (1.0-8.0); PLATELET COUNT 349 thou/uL (150-400); POLYS 55.1 % (36.0-66.0); RBC 3.44 mil/uL (4.50-6.00); RDW 19.8 % (10.5-14.5); WBC 7.4 thou/uL (4.0-11.0)
[2017-12-24 15:39] LABS: CREATININE 0.8 mg/dL (0.7-1.3); POTASSIUM 4.4 mmol/L (3.5-5.1)
[2017-12-24 15:50] LABS: APTT 28.8 Seconds (24.5-32.8); INR 1.2; PROTIME 12.7 Seconds (9.3-11.4)
[2017-12-24 17:31] LABS: ANISOCYTOSIS 1+
[2017-12-24 17:32] LABS: POLYCHROMASIA OCCASIONAL
[2017-12-24 17:33] LABS: LARGE PLATELETS OCCASIONAL
[2017-12-24 20:40] VITALS: BP 105/46
== END 2017-12-24 20:42 | disposition home or self-care (01) ==
LOC: ER 14:15
PROVIDERS: Emergency Medicine
DX: L89.899 Pressure ulcer of other site, unspecified stage (principal); J44.9 Chronic obstructive pulmonary disease, unspecified; M10.9 Gout, unspecified; I48.91 Unspecified atrial fibrillation; N40.0 Benign prostatic hyperplasia without lower urinary tract symptoms; M19.90 Unspecified osteoarthritis, unspecified site; G47.00 Insomnia, unspecified; K21.9 Gastro-esophageal reflux disease without esophagitis; I11.0 Hypertensive heart disease with heart failure; I50.9 Heart failure, unspecified; E11.40 Type 2 diabetes mellitus with diabetic neuropathy, unspecified; F17.210 Nicotine dependence, cigarettes, uncomplicated; Z79.4 Long term (current) use of insulin; Z79.01 Long term (current) use of anticoagulants; Z79.899 Other long term (current) drug therapy; Z86.14 Personal history of Methicillin resistant Staphylococcus aureus infection

== ENCOUNTER 2018-04-08 10:04 | Inpatient (IN) | payer OTHER ==
[2018-04-08] VITALS (7 sets, daily range): BP systolic 85–119; BP diastolic 49–68
[~2018-04-08] VITALS: Ht 182.9 cm; Wt 82.1 kg
[2018-04-08 10:40] LABS: CALCIUM 9.3 mg/dL (8.5-10.1); CREATININE 0.6 mg/dL (0.7-1.3); POTASSIUM 4.7 mmol/L (3.5-5.1)
[2018-04-08 10:46] LABS: ALBUMIN 2.6 g/dL (3.4-5.0); TOTAL BILIRUBIN 0.2 mg/dL (<0.1-1.0)
[2018-04-08 11:04] LABS: URINE BILIRUBIN NEGATIVE (Negative); URINE BLOOD 1+ (Negative); URINE COLOR YELLOW; URINE GLUCOSE-RANDOM* NEGATIVE (Negative); URINE KETONES NEGATIVE (Negative); URINE PROTEIN (DIPSTICK) 1+ (Negative); URINE SPECIFIC GRAVITY 1.015 (1.005-1.035); URINE UROBILINOGEN 0.2 E.U./dl (0.2-1.0)
[2018-04-08 11:05] LABS: URINE CLARITY CLOUDY; URINE LEUKOCYTES-REFLEX 3+ (Negative); URINE NITRITE-REFLEX POSITIVE (Negative)
[2018-04-08 11:13] LABS: CASTS None Seen /LPF (None Seen); MUCUS 0-3 Light strn/LPF (None Seen); SQUAMOUS 0-3 Few /LPF (0-3)
[2018-04-08 11:16] LABS: BACTERIA-REFLEX >30 Many /HPF (None Seen); CRYSTALS None Seen /LPF (None Seen); URINE RBC 3-10 Few /HPF (0-2); URINE WBC-REFLEX >25 Many /HPF (0-5); WBC CLUMPS Occasional (None Seen)
[2018-04-08 11:41] LABS: ABSOLUTE NEUTROPHILS 9.1 thou/uL (1.4-8.2); EOSINOPHILS 0.8 % (0.0-3.0)
[2018-04-08 11:43] LABS: BASOPHILS 0.9 % (0.0-2.0); LYMPHOCYTES 14.3 % (24.0-44.0); MCH 20.9 pg (26.0-34.0); MCHC 30.2 g/dL (28.0-37.0); MCV 69.3 fL (80.0-100.0); MONOCYTES 8.4 % (1.0-8.0); PLATELET COUNT 638 thou/uL (150-400); POLYS 75.6 % (36.0-66.0); RBC 2.93 mil/uL (4.50-6.00); RDW 19.7 % (10.5-14.5)
[2018-04-08 11:46] LABS: HEMATOCRIT 20.3 % (42.0-52.0); HEMOGLOBIN 6.1 gm/dL (14.0-18.0)
[2018-04-08 11:57] LABS: APTT 25.9 Seconds (24.5-32.8); INR 1.2; PROTIME 12.2 Seconds (9.3-11.4)
[2018-04-08 12:12] LABS: ANISOCYTOSIS 2+; HYPOCHROMASIA 2+; MICROCYTES 2+; PLATELET ESTIMATE INCREASED; POLYCHROMASIA 1+
[2018-04-08 12:13] LABS: OVALOCYTES 1+
--- NOTE | 2018-04-08 13:02 | NUR ---
received sbar from er. report received from Tena/rn. room readied for pt.
--- NOTE | 2018-04-08 13:45 | EKG ---
[address] [place] [address] ELECTROCARDIOGRAM REPORT Name: AIDANPLACIDO Room #: 358-P ADM IN M.R.#: [id number] ������������������ Admission: 04/08/18 ������������������ Attend Phys: Nish Vidal MD Discharge: ������������������ Date of : 55 Report #: [id number] ����������������������������������������������������������������� [id number] THIS REPORT FOR: //name// [facility] ED Test Date: 2018-04-08 Test Time: 10:33:53 Pat Name: PLACIDO BERMUDEZ Department: Room: 358 Gender: M [employer] Bi Consultant: ANTONIO : 1955 Requested By: Alison Lin Order Number: [id number] MD: Jordy Bird Measurements Intervals [place] Rate: 102 P: [place]: QRS: -20 QRSD: 96 T: 28 QT: 370 QTc: 483 Interpretive Statements Atrial fibrillation with increased ventricular response Inferior Q waves noted significance unknown Poor R-wave progression consider anterior infarct age indeterminate Nonspecific ST-T wave changes Compared to ECG 09/30/2017 14:11:33 No significant changes Electronically Signed On 04-08-2018 13:44:52 TRACK SUPERVISOR by Jordy Bird [email or web address] ��������������������������������������������� <ELECTRONICALLY SIGNED> ���������������������������������������� By: Jordy Bird MD ��������������������������������������������� 04/08/18 1344 1033 1033 Jordy Bird MD /EPI
[2018-04-09] VITALS (7 sets, daily range): BP systolic 85–108; BP diastolic 35–61
[2018-04-09 02:01] LABS: HEMOGLOBIN 6.6 gm/dL (14.0-18.0)
[2018-04-09 02:02] LABS: HEMATOCRIT 22.1 % (42.0-52.0)
[2018-04-09 02:09] LABS: CALCIUM 8.5 mg/dL (8.5-10.1); CREATININE 0.6 mg/dL (0.7-1.3); POTASSIUM 4.2 mmol/L (3.5-5.1)
[2018-04-09 02:14] LABS: % SATURATION 7 % (20-39); IRON 14 ug/dL (65-175); TIBC 199 ug/dL (250-450)
[2018-04-09 02:39] LABS: FOLIC ACID 24.2 ng/mL (8.6-58.9)
--- NOTE | 2018-04-09 04:53 | NUR ---
ASSUMED CARE OF PATIENT AT 1900. VSS, SLIGHT TEMP. C/O PAIN ALL NIGHT, NO RELIEF DESPITE POLYPHARMACY. 2 UNITS BLOOD TRANSFUSED, BLOOD PRESSURE REMAINS LOW BUT STABLE. REFUSES WOUND CARE OR PHOTOGRAPHY. REQUESTING CENTRAL LINE. MONITORING LABS CLOSELY. NOT PROGRESSING TOWARDS POC GOALS.
[2018-04-09 09:43] LABS: HEMATOCRIT 24.5 % (42.0-52.0); HEMOGLOBIN 7.4 gm/dL (14.0-18.0)
--- NOTE | 2018-04-09 11:41 | NUR ---
VASCULAR ACCESS CONSULTED FOR PICC PLACEMENT. PT'S LABS,MEDS,HISTORY,ORDER AND CONSENT VERIFIED. DISCUSSED BENEFITS AND RISKS WITH PT,VERBALIZED UNDERSTANDING. PT WAS PREPPED AND DRAPED FOR MAX BARRIER PRECAUTIONS. TAMMIE CEPHALIC WIDELY PATENT WITH USG, 1% LIDOCAINE GIVEN SQ. 4FR DL POWER PICC TRIMMED TO 43CM INSERTED TO 0CM WITH BRISK BR. CXR OBTAINED. PICC SECURED
--- NOTE | 2018-04-09 13:16 | NUR ---
CXR CONFIRMED PLACEMENT. PICC RELEASED FOR IMMEDIATE USE PER PROTOCOL TO JORGE A RUBI
--- NOTE | 2018-04-09 15:59 | NUR ---
PT RATES PAIN BETWEEN 5 AND 8..SCHEDULED PAIN MEDS AND PRN PAIN MEDS GIVEN PER ORDERS..REFUSED DRESSING CHANGES RE PAIN..REFUSED U/S BLE RE PAIN...
[2018-04-09 18:41] LABS: HEMOGLOBIN 7.1 gm/dL (14.0-18.0)
[2018-04-10 04:10] VITALS: BP 97/56
--- NOTE | 2018-04-10 04:19 | NUR ---
PT SLEEPING AT TYHIS TIME, HE IS ACTUALLY SNORING. AWAKENS EASILY AND WILL USUALLY ASK FOR PAIN MEDICATION SOON HE AWAKENS. HE IS THANKFUL AND POLITE. HE STATED THAT HE IS WAITING FOR HIS PAIN TO BE UNDER CONTROL THEN HE WILL ALLOW DRESSING CHANGES. HE YELLS IN PAIN OCCASSIONALLY. NO SWELLING CAN BE APPRECIATED WITH TIGHT BANDAGES THAT ARE ON HIS LEGS. HE CONTINUES TO REFUSE TO ALLOW THEN BANDAGES TO HIS LEGS TO BE REMOVED AND REDRESSED. I OFFERED TO HELP HIM WITH THIS TONIGHT. HE CONTINUES ON HIS IV ANTBIOTICS, AND IV FLUIDS. HE DRINKS PLENTLY OF WATER AND IS EXCREING AN APPROPRAITE AMOUNT OF OUTPUT FROM HIS CATHETER. CAREPLAN REVIEWED. HE IS PROGRESSING VERY SLOWLY TOWARD DISCHARGE GOALS.
--- NOTE | 2018-04-10 04:56 | HC ---
[facility] [address] [address] CONSULTATION Name: PLACIDO BERMUDEZ Room #: 358-P ADM IN M.R.#: [id number] Admission: 04/08/18 ������������������ Attend Phys: Nish Vidal MD Discharge: ������������������ Date of : 55 Report #: [id number] THIS REPORT FOR: //name// CC: Nish Vidal DATE OF SERVICE: 04/09/2018 INFECTIOUS DISEASE CONSULTATION: ATTENDING PHYSICIAN: Dr. Vidal. REASON FOR EVALUATION: Bilateral lower extremity wounds complicated by infection. HISTORY OF PRESENT ILLNESS: Chart reviewed, patient examined. This is a 62-year-old gentleman with extensive medical history given his age, has had previous spinal cord injury. He has got known COPD, cardiomyopathy, previous lower extremity wounds, admitted from a facility with progressive fatigue and weakness. Urinalysis showed greater than 25 white cells, greater than 30 bacteria. Lactic acid 1.6. CBC remarkable for hemoglobin of 6.1, hematocrit of 20.3. His white count was borderline elevated at 12, does have bilateral lower extremity wounds that he has refused to have it changed due to the severe nature of the pain associated with that. He was empirically started on antimicrobials, specifically piperacillin tazobactam as well as vancomycin and blood and urine cultures are in progress. At the time of dressing change when he allows, we will collect wound cultures as well. ALLERGIES: None known. CURRENT MEDICATIONS: Metoprolol, diltiazem CD, rivaroxaban, multivitamin, ascorbic acid, furosemide, cholestyramine, clopidogrel, tamsulosin, vancomycin, alteplase, insulin, Zosyn, morphine, trazodone, citalopram, gabapentin, ipratropium albuterol inhaler, diclofenac, baclofen. PAST MEDICAL HISTORY: History of COPD, has cardiomyopathy, history of congestive heart failure, atrial fibrillation, spinal cord injury, depression, gout, peripheral neuropathy, arthritis, reflux, diabetes. SOCIAL HISTORY: Former smoker, although it is clear that it is ongoing to date, has occasional ethanol. FAMILY HISTORY: Noncontributory. REVIEW OF SYSTEMS: As noted above, otherwise unremarkable 10-point review of systems. He is quite lethargic and is somewhat limited and unclarity of his answers. [address] [address] CONSULTATION Name: PLACIDO BERMUDEZ Room #: 358-[facility] IN M.R.#: [id number] Admission: 04/08/18 ������������������ Attend Phys: Nish Vidal MD Discharge: ������������������ Date of : 55 Report #: [id number] PHYSICAL EXAMINATION: GENERAL: He appears chronically ill, undernourished. He is unkempt. VITAL SIGNS: Temperature 97.7, pulse 73, respirations 18, blood pressure is 86/53. HEENT: Extraocular muscles intact. Normocephalic. NECK: Supple. LUNGS: Few scattered coarse breath sounds, occasional expiratory wheeze, overall diminished. HEART: Irregular, has a systolic murmur. ABDOMEN: It is mildly distended, soft. There are no apparent peritoneal signs. EXTREMITIES: Bilateral lower extremities have soil dressings bilaterally to above the knees with evidence of hemorrhage. There is notable odor. GENITOURINARY: Deferred. RECTAL: Deferred. LABORATORY DATA: Electrolytes: Sodium 134, potassium 4.2, chloride 99, bicarbonate is 26, BUN and creatinine 15 and 0.6, glucose 118, anion gap of 9. CBC: White count 12.0, H and H 6.1 and 20.3, platelets of 638. Lactic acid 1.6. Urinalysis greater than 25 white cells, greater than 30 bacteria. Liver functions, total protein of 9, albumin 2.6. Estimated GFR 137. ASSESSMENT: Likely complicated urinary tract infection. We will continue empiric therapy presuming gram-negative, await those results. In addition, has bilateral lower extremity multiple wounds, which he resists dressing changes due to severe nature of the pain associated with it. Again, these need to be cleaned up, would be concerned about complicated bacterial infection at that site as well. Again, the combination therapy should give us adequate coverage, wound care as allowed. Given the severe nature of the pain, we will try to get arterial Dopplers of the lower extremities to see if there is a component of ischemia. ��������������������������������������������� <ELECTRONICALLY SIGNED> ���������������������������������������� By: Varinder Mccracken MD ��������������������������������������������� 04/10/18 0456 0812 2105 Varinder Mccracken MD /nt
[2018-04-10 05:05] VITALS: BP 105/67
[2018-04-10 06:18] LABS: HEMATOCRIT 21.8 % (42.0-52.0); HEMOGLOBIN 6.8 gm/dL (14.0-18.0)
[2018-04-10 07:19] VITALS: BP 94/54
[2018-04-10 09:50] VITALS: BP 88/40; BP 88/41
[2018-04-10 16:41] VITALS: BP 102/53
[2018-04-10 17:24] LABS: HEMATOCRIT 23.8 % (42.0-52.0); HEMOGLOBIN 7.6 gm/dL (14.0-18.0)
[2018-04-10 19:35] VITALS: BP 98/61
[2018-04-10 21:43] LABS: HEMATOCRIT 23.9 % (42.0-52.0); HEMOGLOBIN 7.7 gm/dL (14.0-18.0)
[2018-04-11] VITALS (7 sets, daily range): BP systolic 92–123; BP diastolic 50–75
[2018-04-11 04:52] LABS: HEMATOCRIT 23.3 % (42.0-52.0); HEMOGLOBIN 7.3 gm/dL (14.0-18.0); MCH 22.5 pg (26.0-34.0); MCHC 31.2 g/dL (28.0-37.0); MCV 72.1 fL (80.0-100.0); RBC 3.23 mil/uL (4.50-6.00); RDW 19.9 % (10.5-14.5); WBC 8.7 thou/uL (4.0-11.0)
[2018-04-11 05:04] LABS: CALCIUM 8.4 mg/dL (8.5-10.1); CREATININE 0.5 mg/dL (0.7-1.3); POTASSIUM 3.8 mmol/L (3.5-5.1)
--- NOTE | 2018-04-11 07:41 | NUR ---
Pt a/o x 4. RA. VSS. Pt refused to be turned and repositioned due to c/o pain. Heel boots applied to bilateral feet per previous day-shift RN who ordered those boots. Pain meds given per order. Pt resting in bed comfortably without apparent distress noted. Fall precautions maintained. Call light within reach. Shift change completed with incoming day-shift RN.
--- NOTE | 2018-04-11 10:30 | NUR ---
INITIAL ASSESSMENT: Pt evaluated for d/c planning needs. Reviewed chart and spoke with nurse, physician and pt. Pt is alert and oriented. Pt is a group home care resident at [facility]. Pt plans on returning to facility on d/c from hospital. Pt said he is normally bedridden at facility. Asked conservation planner to fax information to [facility]. Will remain available to assist as needed.
--- NOTE | 2018-04-11 16:07 | NUR ---
ALERT AND ORIENTED, AFIB ON THE MONITOR AND EARLIER TODAY WAS HIGH (140'S-150's) DR. CLAY NOTIFIED AND PATIENT RESTARTED ON DILTIAZEM, IV FLUIDS AND 1U PRB TRANSFUSED. MEDICATED FOR PAIN WITH SCHEDULED AND PRN MEDS. PATIENT NOT WANTING TO TURN OR DO ANYTHING.
[2018-04-11 16:14] LABS: HEMATOCRIT 25.7 % (42.0-52.0); HEMOGLOBIN 8.4 gm/dL (14.0-18.0)
--- NOTE | 2018-04-11 16:26 | 2DMMODE ---
[facility] [address] [place] [address] 2 D/M-MODE ECHOCARDIOGRAM Name: PLACIDO BERMUDEZ Room #: 358-P ADM IN M.R.#: [id number] ������������� Admission: 04/08/18 ������������� Attend Phys: Nish Vidal MD Discharge: ��� ������������� ��� Date of : 55 Date of Service: 04/11/18 1626 �� Report #: [id number] �������� ��������������������������������������������[id number] THIS REPORT FOR: //name// APPROVED REPORT Study performed: 04/11/2018 13:29:14 EXAM: Limited 2D, Doppler, and color-flow Echocardiogram Patient Location: Bedside Room #: [facility] Status: routine BSA: 2.04 HR: 105 bpm BP: 108/66 mmHg Rhythm: Atrial Fibrillation Other Information Study Quality: Adequate Risk Factors: Cardiac Risk Factors: HTN, DM Indications Congestive Heart Failure COPD Atrial Fibrillation Sepsis Dyspnea 2D Dimensions IVSd: 14.59 (7-11mm) LVOT Diam: 21.00 (18-24mm) LVDd: 45.80 mm PWd: 14.16 (7-11mm) Ascending Ao: 38.27 (22-36mm) LVDs: 32.41 (25-40mm) Aortic Root: 33.82 mm Volumes Left Atrial Volume (Systole) Single Plane 4CH: 60.11 mL Single Plane 2CH: 64.56 mL LA ESV Index: 37.00 mL/m2 Aortic Valve AoV Peak Sincere.: 1.81 m/s AO Peak Gr.: 13.35 mmHg LVOT Max P.59 mmHg AO Mean Gr.: 8.73 mmHg LVOT Mean P.69 mmHg AO V2 Mean: 1.41 m/s LVOT Max V: 1.06 m/s [facility] [address] [place] [address] 2 D/M-MODE ECHOCARDIOGRAM Name: PLACIDO BERMUDEZ Room #: 358-[facility] IN .R.#: [id number] ������������� Admission: 04/08/18 ������������� Attend Phys: Nish Vidal MD Discharge: ��� ������������� ��� Date of : 55 Date of Service: 04/11/18 1626 �� Report #: [id number] �������� ��������������������������������������������[id number] AO V2 VTI: 30.03 cm LVOT Mean V: 0.79 m/s CHRIS (VTI): 2.35 cm2 LVOT V1 VTI: 21.26 cm CHRIS Vmax: 1.94 cm2 SV (LVOT): 70.65 mL Pulmonary Valve PV Peak Sincere.: 1.19 m/s PV Peak Gr.: 5.63 mmHg Tricuspid Valve TR Peak Sincere.: 2.72 m/s RAP Estimate: 10.00 mmHg TR Peak Gr.: 29.52 mmHg PA Pressure: 40.00 mmHg Left Ventricle The left ventricle is normal size. There is normal LV segmental wall motion. Moderate concentric left ventricular hypertrophy. Left ventricular systolic function is normal. The left ventricular ejection fraction is within the normal range. LVEF is 55-60%. This study is not technically sufficient to allow evaluation of the LV diastolic function. Right Ventricle The right ventricle is normal size. The right ventricular systolic function is normal. Atria The left atrium size is normal. The right atrium size is normal. Aortic Valve Aortic valve is calcified. Aortic valve area is 1.9 cm2. Peak velocity is13 mmHg, mean is 8 mmHg. Trace aortic regurgitation. Mild aortic stenosis. Mitral Valve There is mitral annular calcification. Mild mitral regurgitation. No evidence of mitral valve stenosis. Tricuspid Valve The tricuspid valve is normal in structure. Mild to moderate tricuspid regurgitation. Pulmonary artery pressure is 40 mmHg. Pulmonic Valve The pulmonary valve is normal in structure. Trace to mild pulmonic regurgitation. [address] [address] 2 D/M-MODE ECHOCARDIOGRAM Name: PLACIDO BERMUDEZ Room #: 358-P [facility] IN ..#: [id number] ������������� Admission: 04/08/18 ������������� Attend Phys: Nish Vidal MD Discharge: ��� ������������� ��� Date of : 55 Date of Service: 04/11/18 1626 �� Report #: [id number] �������� ��������������������������������������������[id number] [employer] The aortic root is normal in size. IVC is normal in size and collapses >50% with inspiration. Pericardium There is no pericardial effusion. <Conclusion> The left ventricle is normal size. LVEF is 55-60%. Aortic valve is calcified. Aortic valve area is 1.9 cm2. Peak velocity is13 mmHg, mean is 8 mmHg. Trace aortic regurgitation. There is mitral annular calcification. Mild mitral regurgitation. The tricuspid valve is normal in structure. Mild to moderate tricuspid regurgitation. Pulmonary artery pressure is 40 mmHg. The pulmonary valve is normal in structure. Trace to mild pulmonic regurgitation. There is no pericardial effusion. ��������������������������������������������� <ELECTRONICALLY SIGNED> ���������������������������������������� By: Jordy Bird MD ��������������������������������������������� 04/11/18 1626 1626 1626 Jordy Bird MD /INF
--- NOTE | 2018-04-11 18:35 | NUR ---
WOUND CONSULT; ROUNDING WITH DR MÓNICA DUFF TODAY. ALL WOUNDS ARE EXTREMLY PAINFUL. MULTIPLE WOUNDS TO THE LEGS BILATERALLY. NO ODOR NOTED, MIXED ARTERIAL/VENOUS S/S. RECOMMENDATIONS; 1-CONTINUE SILVADINE/MORPHINE CREAM DAILY, COVER WITH XEROFORM, ABD, SECURE WITH KERLIX, DAILY/PRN DISCUSSED WITH STAFF
[2018-04-12 04:23] VITALS: BP 111/52
--- NOTE | 2018-04-12 05:30 | NUR ---
PATIENTS CARES WERE ASSUMED AT SHIFT CHANGE. PATIENT WAS ASSESSED AND MEDS WERE PASSED. PATIENTS PAIN HAS NEVER GOT LOWER THAN A 8 OUT OF 10 ALL NIGHT. LARGE AMOUNTS OF MORPHINE WAS NOT BRINGING DOWN THE PAIN HOWEVER IT DID GET HIS BLOOD PRESSURE SOFT. C/O TOOTH ACHE AND WAS GIVEN TYLENOL. C/O EYES WATERING AND WAS GIVEN BENADRYL PER PATIENTS REQUEST. HOURLY ROUNDING WAS DONE PATIENT DID NOT SLEEP WELL UNTIL ABOUT 0500. PATIENTS BED IS IN A LOW AND LOCKED POSITION. THE BED ALARM IS ON.
[2018-04-12 07:32] VITALS: BP 118/60
[2018-04-12 09:09] LABS: GLOBULIN TOTAL 4.9 g/dL (2.2-3.9); M-SPIKE 0.2 g/dL (Not Observed)
[2018-04-12 09:23] LABS: HEMATOCRIT 25.7 % (42.0-52.0); HEMOGLOBIN 8.2 gm/dL (14.0-18.0)
[2018-04-12 11:17] VITALS: BP 119/69
--- NOTE | 2018-04-12 14:27 | NUR ---
RIC reviewed chart and spoke with nursing. Pt is scheduled to have an angiogram with possible stent placement tomorrow. cyber policy and strategy planner to fax clinical info to [facility] for review. RIC is following to assist as needed with discharge planning.
[2018-04-12 16:34] VITALS: BP 118/80
[2018-04-12 19:38] VITALS: BP 104/54
[2018-04-13] VITALS (7 sets, daily range): BP systolic 95–115; BP diastolic 38–66
[2018-04-13 05:50] LABS: HEMATOCRIT 24.7 % (42.0-52.0); HEMOGLOBIN 7.9 gm/dL (14.0-18.0); MCH 23.7 pg (26.0-34.0); MCV 74.1 fL (80.0-100.0); RBC 3.34 mil/uL (4.50-6.00); RDW 21.1 % (10.5-14.5); WBC 9.4 thou/uL (4.0-11.0)
[2018-04-13 06:05] LABS: CALCIUM 8.5 mg/dL (8.5-10.1); CREATININE 0.5 mg/dL (0.7-1.3); POTASSIUM 4.1 mmol/L (3.5-5.1)
--- NOTE | 2018-04-13 07:40 | NUR ---
PT MAKING POOR PROGRESS TOWARDS GOALS. C/O PAIN IN BOTH LEGS, SHOULDERS AND HIS TEETH. TYLENOL GIVEN FOR TOOTH PAIN WITH MINIMAL RELIEF. MORPHINE IR GIVEN FOR LEG PAIN WITH MINIMAL RELIEF. PT FOUND TO BE MOANING AND GROANING AT TIMES WHEN PAIN MEDICATION WOULD BE DUE. PT OCCASIONALLY COMPLIANT WITH REPOSITIONING AT TIMES. CAPILLARY REFILL IN TOES ON BOTH FEET EQUAL TO 3 SECONDS.
--- NOTE | 2018-04-13 15:17 | NUR ---
dp sent updates to [facility] i one to two days. DP will call facility to make certain they received faxed updates.
--- NOTE | 2018-04-13 16:13 | NUR ---
RIC reviewed chart. Pt had blood transfusion today and angiogram with possible stent placement has been postponed. Pt wants to discuss procedure with his son prior to giving consent. fence setter faxed clinical updates to [facility] for review. RIC is following to assist as needed with discharge planning.
--- NOTE | 2018-04-13 16:53 | NUR ---
WOUND FOLLOW UP: PT. WAS SEEN TODAY BY DR. DUFF AND MYSELF. PT. DRESSING WERE C/D/I AT THIS TIME. PT. AGREED TO HAVE WOUND CARE TO SEE HIS WOUND TOMORROW. RECOMMENDATIONS: CONTINUE WITH CURRENT PLAN OF CARE. PT. AND STAFF NURSE WERE INSTRUCTED ON PLAN OF CARE.
--- NOTE | 2018-04-13 18:42 | NUR ---
PT ALERT AND ORIENETD TIMES FOUR. VSS, 98%RA, SR ON TELE. C/O PAIN PRN AND SCHEDULED PAIN MEDICATION GIVEN WITH SOME RELEIF. DRESSING TO BLE CHANGED TODAY. ONE UNIT PRBC GIVEN THIS SHIFT WITHOUT ISSUES. PT TOLERATES MEDS AND MEALS. PT SLOWLY PROGRESSING TOWRADS POC GOALS.
[2018-04-14 03:40] VITALS: BP 109/58
--- NOTE | 2018-04-14 05:31 | NUR ---
PT MAKING SLOW PROGRESS TOWARDS GOALS. PT ASKING FOR PRN PAIN MEDS EVERY FOUR HOURS. ONE OCCASION PT STATES THAT THE MEDICATIONS HAVE ALLOWED HIM TO REACH HIS PAIN GOAL BRIEFLY. TYLENOL ONCE FOR TOOTH PAIN. CONTINUE TO MONITOR.
[2018-04-14 05:32] LABS: HEMATOCRIT 27.5 % (42.0-52.0); HEMOGLOBIN 8.5 gm/dL (14.0-18.0); MCH 23.1 pg (26.0-34.0); MCHC 30.8 g/dL (28.0-37.0); MCV 74.9 fL (80.0-100.0); RBC 3.68 mil/uL (4.50-6.00); RDW 21.3 % (10.5-14.5)
[2018-04-14 08:00] VITALS: BP 110/69
[2018-04-14 11:15] VITALS: BP 110/60
[2018-04-14 15:30] VITALS: BP 111/56
--- NOTE | 2018-04-14 15:39 | NUR ---
ASSUMED CARE OF PT AT 0700 THIS SHIFT. PT HAS BEEN COOPERATIVE, HAS HAD ALMOST CONSTANT PAIN FROM WOUNDS AND ARTHRITIS WHEN AWAKE. WOUND CARE HAS RE-DRESSED ALL WOUNDS THIS SHIFT. PT IS STILL WAITING ON SON TO GET IN TOWN TO MAKE FURTHER DECISIONS ON CARE. PT IS CURRENTLY RESTING COMFORTABLY IN ROOM. PT HAS NOT HAD VISITORS THIS SHIFT, EDUCAITON WAS PROVIDED. PLAN OF CARE IS TO CONTINUE TO MONITOR CLOSELY AT THIS TIME.
--- NOTE | 2018-04-14 15:45 | NUR ---
DISCHARGE PLANNING. ANTICIPATED DISCHARGE PLANNED FOR TOMORROW IF PATIENT IS MEDICALLY READY. PENDING HGB RESULTS IN AM. PATIENT TO DISCHARGE TO [facility] ON VANCOMYCIN AND ZOSYN FOR 14 DAYS TOTAL. CLINICAL INFORMATION FAXED TO [facility] ADMISSIONS TO NOTIFY OF PATIENTS DISCHARGE NEEDS AND TO VERIFY THAT THEY WILL BE ABLE TO FACILITATE IV ABX ORDERED. AWAITING RESPONCE. UNIT CM/SW AWARE. FOLLOWING TO ASSIST WITH DISCHARGE NEEDS.
--- NOTE | 2018-04-14 15:55 | NUR ---
WOUND FOLLOW UP: PT. WAS SEEN TODAY BY DR. DUFF AND MYSELF. PT. WOUNDS ARE CLINICALLY BETTER TODAY. PT. ALLOWED ALL OF HIS WOUND CARE TO BE COMPLETED BY THE WOUND CARE TEAM. PT. WAS IN GOOD SPIRITS TODAY. RECOMMENDATIONS: CONTINUE WITH CURRENT PLAN OF CARE. PT. AND STAFF NURSE WERE INSTRUCTED ON PLAN OF CARE.
--- NOTE | 2018-04-14 16:22 | NUR ---
SW reviewed chart and spoke with nursing. Pt is progressing towards goals for discharge back to [facility]. If pt's hemoglobin is >8 tomorrow, pt will discharge. Pt will need home IV abx: vanco and zosyn for 14 days. SW met with pt at bedside to discuss discharge plan. Pt is aware and agreeable with discharge plan. urban and regional planner faxed updates to [facility]. RIC is following to assist as needed with discharge planning.
[2018-04-14 19:00] VITALS: BP 115/68
[2018-04-15 04:22] VITALS: BP 90/55
[2018-04-15 05:50] LABS: HEMATOCRIT 27.9 % (42.0-52.0); HEMOGLOBIN 8.7 gm/dL (14.0-18.0)
--- NOTE | 2018-04-15 06:22 | NUR ---
RESTING QUIETLY TONIGHT. SHE IS CONCERNED WITH DISCHARGE, SHE WANTS TO ,MAKES SURE THAT SHE CAN GET HER ATIVAN AT TIME OF MASSAGE. RESTING QUIETLY TONIGHT.
[2018-04-15 07:25] VITALS: BP 106/58
[2018-04-15] MEDS ORDERED: BANOPHEN25 M1 PO (09:56)
[2018-04-15] MEDS ORDERED: ZOSYN 3.373.375 GM/1 IV (09:58)
[2018-04-15] MEDS ORDERED: VANCO 1.251.25 GM/25 IVPB (09:58)
[2018-04-15] MEDS ORDERED: BACLOFEN 10MG T10 MG PO (10:00)
[2018-04-15] MEDS ORDERED: METOPROLOL SUCC50 MG PO (10:00)
[2018-04-15] MEDS ORDERED: CARDIZEM CD240 MG PO (10:01)
[2018-04-15] MEDS ORDERED: MS CONTIN 30 MG30 M1 PO (10:02)
[2018-04-15] MEDS ORDERED: MORPHINE SULFAT15 M3 PO (10:03)
[2018-04-15] MEDS ORDERED: MS CONTIN15 MG PO (10:03)
[2018-04-15 11:29] VITALS: BP 98/62
--- NOTE | 2018-04-15 15:37 | NUR ---
DISCHARGE NOTE: RIC reviewed chart and spoke with nursing. Pt is medically stable for discharge back to [facility] today. Discharge planning to coordinate. Chart copy ordered. SW is available to assist should needs arise.
[2018-04-15 15:46] VITALS: BP 105/56
--- NOTE | 2018-04-15 16:37 | NUR ---
ASSUMED PATIENT CARE AT 0700. A/O X4. PLEASAMT. WOUND CARE PER ORDER. DC WOUND PICTURE TAKING. ANDREA MED SGIVEN NEEDS, DC TO SNF AT 1610.
--- NOTE | 2018-04-16 12:08 | HC ---
[facility] [address] [place] [address] CONSULTATION Name: BERMUDEZPLACIDO Room #: 358-P [facility] IN M.R.#: [id number] Admission: 04/08/18 ������������������ Attend Phys: Nish Vidal MD Discharge: 04/15/18 ������������������ Date of : 55 Report #: [id number] THIS REPORT FOR: //name// CC: Nish Vidal DATE OF SERVICE: 04/10/2018 WOUND CARE CONSULTATION REASON FOR CONSULTATION: Bilateral arterial leg ulcers and bilateral gluteal ulcers. HISTORY OF PRESENT ILLNESS: The patient is a 62-year-old gentleman well known to the wound care service from previous admissions. He was last seen by our service in the hospital about 6 months ago for extensive arterial wounds of both lower extremities. The patient states at that time, Dr. Stark was in on his evaluation. The patient has had longstanding lower extremity vascular wounds, which have not healed. He also has a history of gluteal wound. The patient was admitted to [place] with hypotension, leukocytosis, anemia and suspected urinary tract infection. PAST MEDICAL HISTORY: Anemia, chronic paraplegia from a fall, urinary tract infection, history of sacral wound, history of diabetes, COPD, congestive heart failure, atrial fibrillation, history of cardiac arrest, lower extremity neuropathy. ALLERGIES: No known drug allergies. MEDICATIONS: Clopidogrel, Xarelto, Celexa, Lasix, Centrum Silver, Questran, Protonix, Flomax, Zofran, Milnor, Levsin, NovoLog insulin, Neurontin, Tylenol. REVIEW OF SYSTEMS: The patient is immobile due to paraplegia. PHYSICAL EXAMINATION: GENERAL: Shows a chronically ill-appearing gentleman, appearing his stated age. HEENT: Mucous membranes are moist. NECK: Supple. LUNGS: Respirations are unlabored. ABDOMEN: Soft. SKIN: Examination of the patient's back shows small 1.5 x 1.5 cm stage 2 pressure ulcer of the left ischial buttock. There are 2 small pressure ulcers measuring 1.2 cm in diameter and 1 cm in diameter of the right buttock. Examination of the lower extremities shows that the legs are wrapped. Kerlix and Xeroform wraps are removed. The patient has extensive ulcerations of both lower extremities below the knee. These are near circumferential, worse on the left than the right. There is desquamation with large open wounds of the right [address] [address] CONSULTATION Name: PLACIDO BERMUDEZ Room #: 358-P [facility] IN M.R.#: [id number] Admission: 04/08/18 ������������������ Attend Phys: Nish Vidal MD Discharge: 04/15/18 ������������������ Date of : 55 Report #: [id number] anterior leg and near circumferential wound to the left leg with granulation behind the heel, also some open wounds on the dorsum of the foot. These wounds are deep to the subcutaneous layer. Wounds are painful to touch. IMPRESSION: 1. Paraplegia with immobility. 2. Right gluteal stage 2 pressure ulcer. 3. Left gluteal stage 2 pressure ulcer. 4. Immobility. 5. 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 6. Multiple ulcerations of bilateral lower extremities, may have a venous stasis component as well as an arterial component. PLAN: Order morphine, Silvadene with Xeroform daily dressings. Wound cultures are done. The patient is known to the wound care team. Dr. Bridges or Dr. Stark may elect on further arterial evaluation during this admission. ��������������������������������������������� <ELECTRONICALLY SIGNED> ���������������������������������������� By: Collin Chapin MD ��������������������������������������������� 04/16/18 1208 1426 2250 Collin Chapin MD /nt
== END 2018-04-15 17:08 | DRG 871 ==
LOC: ER 10:04 → 3W 11:52 → EROBS 11:52 → 3W 12:58
PROVIDERS: Nurse Practitioner Gerontology; Physician Assistant; Specialist; ADMIT Internal Medicine
PROC: 02HV33Z Insertion of Infusion Device into Superior Vena Cava, Percutaneous Approach (ICD-10-PCS; principal; 2018-04-08)
PROC: 30233N1 Transfusion of Nonautologous Red Blood Cells into Peripheral Vein, Percutaneous Approach (ICD-10-PCS; principal; 2018-04-08)
DX: A41.9 Sepsis, unspecified organism (principal); L89.324 Pressure ulcer of left buttock, stage 4; L89.314 Pressure ulcer of right buttock, stage 4; N39.0 Urinary tract infection, site not specified; G82.20 Paraplegia, unspecified; I42.9 Cardiomyopathy, unspecified; E46 Unspecified protein-calorie malnutrition; J44.9 Chronic obstructive pulmonary disease, unspecified; I50.9 Heart failure, unspecified; F32.9 Major depressive disorder, single episode, unspecified; K59.00 Constipation, unspecified; M10.9 Gout, unspecified; N40.0 Benign prostatic hyperplasia without lower urinary tract symptoms; M19.90 Unspecified osteoarthritis, unspecified site; G47.00 Insomnia, unspecified; K21.9 Gastro-esophageal reflux disease without esophagitis; D64.9 Anemia, unspecified; E11.40 Type 2 diabetes mellitus with diabetic neuropathy, unspecified; E11.621 Type 2 diabetes mellitus with foot ulcer; I95.9 Hypotension, unspecified; Z68.24 Body mass index [BMI] 24.0-24.9, adult; G89.4 Chronic pain syndrome; I11.0 Hypertensive heart disease with heart failure; E11.51 Type 2 diabetes mellitus with diabetic peripheral angiopathy without gangrene; I35.0 Nonrheumatic aortic (valve) stenosis; I48.2 Chronic atrial fibrillation; M25.519 Pain in unspecified shoulder; Z87.891 Personal history of nicotine dependence; Z98.49 Cataract extraction status, unspecified eye; Z93.3 Colostomy status
CPT/HCPCS: 10879; 27000

== ENCOUNTER 2018-06-25 15:21 | Inpatient (IN) | payer OTHER ==
[~2018-06-25] VITALS: Ht 182.9 cm; Wt 110.9 kg
--- NOTE | ~2018-06-25 | H ---
[facility] Dandy [place] [address] HISTORY AND PHYSICAL Name: BERMUDEZPLACIDO ELLE Room #: 359-P ADM IN M.R.#: [id number] Admission: 06/25/18 ������������������ Attend Phys: Nish Vidal MD Discharge: ������������������ Date of : 55 Report #: [id number] THIS REPORT FOR: //name// CC: Nish Vidal DATE OF SERVICE: 06/25/2018 CHIEF COMPLAINT: Prostatic hypertrophy, unable to pass Kern catheter, urinary tract infection, sepsis. HISTORY OF PRESENT ILLNESS: The facility suspected the presence of a urinary tract infection. He has an enlarged prostate, and is wheelchair bound from spinal cord injuries and has a chronic indwelling Kern catheter. The catheter was being changed; however, the prison staff was unable to reinsert a clean catheter and because of known prostate enlargement/obstruction. For this reason, he was transferred to [facility] where in the Emergency Room the staff were able to pass Kern catheter past the prostatic obstruction and into the bladder. More than 600 mL of urine was drained immdiately from his bladder. The placing the catheter was extremely uncomfortable for him. Having the urine build up in the bladder and not be able to empty the urine, was also uncomfortable. He was asking the physicians about the possibility of getting suprapubic catheter, so this would not happen again. After the urine drainage was established, urinalysis was grossly abnormal showing the presence of urine infection. His temperature was 101.7 (greater than 100.9), his heart rate was 116 (greater than 90), his respiratory rate was 24 breaths per minute (greater than 20) and white blood cell count was 15,200 (greater than 12,000) with a left shift of 90% segmented neutrophils, fulfilling the qualifications for SIRS/sepsis. For this reason, admission was indicated. PAST MEDICAL HISTORY: Extensive. Beginning approximately 2008, he fell and fractured C4. He reports that after the fall, he was "completely paralyzed" and underwent cadaver bone grafting surgery to the fracture. After recovering from his surgery, he says he was able to walk with a walker. Unfortunately, he then suffered another fall, and although he reports having been able to walk with a walker at sometime since then for the most part has been wheelchair bound. He has had multiple wounds in his legs, and buttocks, and currently continues to have those wounds. At times, he has been noncompliant and not allowed dressing changes. Because of previous abdominal surgery, there was consideration to a diverting colostomy, but that has been put on an indefinite hold. He does have prostatic hypertrophy leading to urinary outlet obstruction. Today, after feeling better, he is not as enthusiastic about a suprapubic catheter as he was yesterday before the Emergency Room staff was finally able to [address] [address] HISTORY AND PHYSICAL Name: PLACIDO BERMUDEZ Room #: 359-P [facility] IN M.R.#: [id number] Admission: 06/25/18 ������������������ Attend Phys: Nish Vidal MD Discharge: ������������������ Date of : 55 Report #: [id number] get a catheter inserted and urinary drainage reestablished. He was here from 04/13 to 04/15 for sepsis with tachycardia and hypotension due to wound infections. He had an anemia, likely to slow blood loss due to his wounds. Peripheral artery disease. Chronic arterial insufficiency, wounds of the lower extremities. Chronic atrial fibrillation. Chronic pain syndrome, Compensated congestive heart failure. He was transfused a total of 4 units to maintain hemoglobin over 8. He refused an arteriogram to his legs. In addition to his leg wounds, heel ulcers, he had a sacral region decubitus ulcer as well. The leg wounds grew MRSA, Pseudomonas aeruginosa, and Escherichia coli with ESBL. He has had a colostomy for diverticulitis, and a take-down. Other medical problems listed: Type 2 diabetes with diabetic neuropathy, peripheral vascular angioplasties with stents and grafts, COPD, diffuse shoulder, chronic pain, paraplegia, chronic insomnia, GERD with esophagitis, depression. CURRENT MEDICATIONS: At the time of admission, taken from the medication sheet: Acetaminophen 500 mg every 8 hours as needed for pain, albuterol nebulizer solution every 6 hours as needed for shortness of breath, 500 mg of vitamin C for wound healing daily, baclofen 10 mg 4 times a day for muscle spasms, calcium alginate applied to the buttocks daily for wound cleansing, cholestyramine 4 grams 1 packet orally once a day for hyperlipidemia, citalopram 20 mg at bedtime for depression, clopidogrel 75 mg once a day for vascular disease and the mild anticoagulation for his atrial fibrillation, collagen hydrolysate (bovine) powder to the penis topically daily, diltiazem ER 240 mg once daily, diphenhydramine 25 mg 2 pills at bedtime as needed for insomnia, gabapentin 300 mg 2 pills twice for doses 600 mg twice daily for neuropathy with 3 pills or 900 mg at bedtime for neuropathy, lactobacillus 1 capsule daily for gut health, furosemide 20 mg once daily for chronic edema, metoprolol succinate extended release 50 mg once daily for atrial fibrillation, moisture barrier ointment to the buttocks and coccyx twice daily, morphine sulfate 15 mg immediate release every 4 hours as needed for pain, measuring 6-10 on a 10-point scale, morphine sulfate extended release 15 mg together with the morphine sulfate extended release 30 mg twice daily for chronic pain, multivitamin adult tablet once daily, 10 units of NovoLog before meals for his diabetes, pantoprazole 40 mg once daily for GERD, Silvadene cream 1% to the leg wounds every shift daily after cleansing with wound cleanser to be applied for the heels as well as the legs, tamsulosin 0.4 mg at bedtime, trazodone 100 mg at bedtime for insomnia and depression, umeclidinium bromide powder 62.5 mcg inhaled once daily for COPD, diclofenac sodium gel 2 g applied four times a day to the shoulders for pain and Zofran 4 mg 3 times a day as needed for nausea. ALLERGIES: None known. [facility] [address] [place] [address] HISTORY AND PHYSICAL Name: PLACIDO BERMUDEZ Room #: 359-P [facility] IN ..#: [id number] Admission: 06/25/18 ������������������ Attend Phys: Nish Vidal MD Discharge: ������������������ Date of : 55 Report #: [id number] SOCIAL HISTORY: Since his paraplegia he has been a resident at a snf facility. He does not drink, smoke, nor use drugs of abuse. There is a past history of smoking. REVIEW OF SYSTEMS: Negative except for the HPI above. He does request a full code blue. PHYSICAL EXAMINATION: GENERAL: Today, he is seen in his hospital bed. HEENT: Remarkable for needing dentures, in a few remaining lower teeth. NECK: Negative. LUNGS: Clear anteriorly. CARDIOVASCULAR: S1 and S2 are normal at the time of my exam, the heart rate is under 100 and the rhythm is irregularly irregular. ABDOMEN: Obese, soft and nontender. Bowel sounds are normal. There is moderate edema of the lower extremities. EXTREMITIES: Prafo boots are present on both feet, there are dressings over the lower legs and these were not removed. LABORATORY DATA: His creatinine is 0.8, close to baseline of 0.5, albumin is 3.1 and dropped to 2.8 the next day; however, absolute lymphocytes are over 1500 at 1520. WBCs are 15,200 with 79% neutrophil left shift. Urinalysis is grossly abnormal with white blood cells and red blood cells and bacteria. Squamous epithelial cells are absent. ASSESSMENT: 1. Sepsis with following criteria: Temperature of 101.7 (greater than 100.9), heart rate of 116, in the Emergency Room (greater than 90), respiratory rate of 24 (greater than 20), and white blood cell count 15,200 (greater than 12,000). Organ dysfunction was not identified. Infection is suspected/proven. 2. Urine infection. 3. Paraplegia that is stable. 4. Prostatic urine obstruction. 5. Chronic obstructive pulmonary disease. 6. Peripheral vascular disease. 7. Chronic atrial fibrillation. 8. Diabetes. 9. Peripheral vascular disease with prior stents. 10. History of congestive heart failure with that appears compensated. Echocardiogram 04/11/2018 showed moderate concentric left ventricular hypertrophy with normal ejection fraction of 55-60%. Study was unable to evaluate for LV diastolic dysfunction, mild aortic stenosis was present with trace aortic insufficiency. Mild mitral insufficiency was present and pulmonary artery pressure was [address] [address] HISTORY AND PHYSICAL Name: PLACIDO BERMUDEZ Room #: 359-P ADM IN M.R.#: [id number] Admission: 06/25/18 ������������������ Attend Phys: Nish Vidal MD Discharge: ������������������ Date of : 55 Report #: [id number] 11. Chronic edema of the legs. 12. Chronic decubitus ulcers of the buttock/sacral region, and vascular insufficiency ulcers of the lower legs. 13. Type 2 diabetes, on insulin. 14. Insomnia. 15. Chronic pain of the shoulders and other osteoarthritic locations. 16. Hypertension. 17. Other medical problems as mentioned above. PLAN: The patient's home medications are being renewed. He is being treated with Rocephin intravenously every 24 hours. He has requested a full code blue. He desires more information regarding the placement of a suprapubic catheter. Hemoglobin A1c will help determine his diabetic status and response to antibiotic treatment. ��������������������������������������������� ���������������������������������������� By: ��������������������������������������������� 2203 Oswaldo Munoz MD /nt
[~2018-06-25 15:21] MED LIST changes: +BACLOFEN 10MG T10 MG PO; +BANOPHEN25 M1 PO; +CARDIZEM CD240 MG PO; +METOPROLOL SUCC50 MG PO; +MORPHINE SULFAT15 M3 PO; +MS CONTIN 30 MG30 M1 PO; +MS CONTIN15 MG PO; +VANCO 1.251.25 GM/25 IVPB; +ZOSYN 3.373.375 GM/1 IV
[2018-06-25 15:22] VITALS: BP 110/61
[2018-06-25 15:45] LABS: URINE BILIRUBIN NEGATIVE (Negative); URINE BLOOD 3+ (Negative); URINE COLOR YELLOW; URINE GLUCOSE-RANDOM* NEGATIVE (Negative); URINE KETONES NEGATIVE (Negative); URINE PROTEIN (DIPSTICK) 2+ (Negative); URINE SPECIFIC GRAVITY 1.015 (1.005-1.035); URINE UROBILINOGEN 0.2 E.U./dl (0.2-1.0)
[2018-06-25 15:46] LABS: URINE CLARITY HAZY; URINE LEUKOCYTES-REFLEX 3+ (Negative); URINE NITRITE-REFLEX POSITIVE (Negative)
[2018-06-25 15:52] LABS: SQUAMOUS None Seen /LPF (0-3); URINE WBC-REFLEX >25 Many /HPF (0-5)
[2018-06-25 15:53] LABS: BACTERIA-REFLEX >30 Many /HPF (None Seen); CASTS None Seen /LPF (None Seen); CRYSTALS None Seen /LPF (None Seen)
[2018-06-25 15:58] LABS: HEMATOCRIT 32.5 % (42.0-52.0); HEMOGLOBIN 9.9 gm/dL (14.0-18.0); MCH 22.6 pg (26.0-34.0); MCHC 30.3 g/dL (28.0-37.0); MCV 74.7 fL (80.0-100.0); PLATELET COUNT 311 thou/uL (150-400); RBC 4.36 mil/uL (4.50-6.00); RDW 19.9 % (10.5-14.5); WBC 15.2 thou/uL (4.0-11.0)
[2018-06-25 16:09] LABS: CALCIUM 8.8 mg/dL (8.5-10.1); CREATININE 0.8 mg/dL (0.7-1.3); POTASSIUM 4.6 mmol/L (3.5-5.1)
[2018-06-25 16:15] LABS: ALBUMIN 3.1 g/dL (3.4-5.0); TOTAL BILIRUBIN 0.4 mg/dL (<0.1-1.0); TOTAL PROTEIN 8.9 g/dL (6.4-8.2)
[2018-06-25 17:08] LABS: ABSOLUTE NEUTROPHILS 12.2 thou/uL (1.4-8.2); ANISOCYTOSIS 1+
[2018-06-25 17:29] VITALS: BP 123/67
[2018-06-25 18:39] VITALS: BP 119/68
[2018-06-25 19:02] VITALS: BP 134/71
[2018-06-25 21:00] VITALS: BP 123/64
[2018-06-26] VITALS (7 sets, daily range): BP systolic 91–119; BP diastolic 44–69
[2018-06-26 04:47] LABS: HEMATOCRIT 31.2 % (42.0-52.0); HEMOGLOBIN 9.3 gm/dL (14.0-18.0); MCH 22.5 pg (26.0-34.0); MCHC 29.9 g/dL (28.0-37.0); MCV 75.5 fL (80.0-100.0); RBC 4.13 mil/uL (4.50-6.00); RDW 19.7 % (10.5-14.5); WBC 13.7 thou/uL (4.0-11.0)
[2018-06-26 05:17] LABS: ALBUMIN 2.8 g/dL (3.4-5.0); CALCIUM 8.7 mg/dL (8.5-10.1); CREATININE 0.6 mg/dL (0.7-1.3); POTASSIUM 4.1 mmol/L (3.5-5.1); TOTAL BILIRUBIN 0.3 mg/dL (<0.1-1.0); TOTAL PROTEIN 8.1 g/dL (6.4-8.2)
--- NOTE | 2018-06-26 10:28 | EKG ---
[address] [place] [address] ELECTROCARDIOGRAM REPORT Name: BERMUDEZPLACIDO Room #: 359-P ADM IN M.R.#: [id number] ������������������ Admission: 06/25/18 ������������������ Attend Phys: Nish Vidal MD Discharge: ������������������ Date of : 55 Report #: [id number] ����������������������������������������������������������������� [id number] THIS REPORT FOR: //name// [facility] ED Test Date: 2018-06-25 Test Time: 15:55:24 Pat Name: PLACIDO BERMUDEZ Department: Room: 359 Gender: M Account Manager Relief: : 1955 Requested By: Sharath Singh Order Number: [id number] MD: Desean Werner Measurements Intervals [place] Rate: 144 P: SD: QRS: -22 QRSD: 94 T: 39 QT: 304 QTc: 471 Interpretive Statements Atrial fibrillation Inferior infarct, old Poor R wave progression Compared to ECG 04/08/2018 10:33:53 No significant change was found Electronically Signed On 06-26-2018 10:27:51 CDT by Desean Werner [email or web address] ��������������������������������������������� <ELECTRONICALLY SIGNED> ���������������������������������������� By: Desean Werner MD, [facility] ��������������������������������������������� 06/26/18 1027 1555 1555 Desean Werner MD, FAC /EPI
[2018-06-27 04:30] VITALS: BP 117/71
[2018-06-27 06:59] LABS: MCH 23.1 pg (26.0-34.0); MCV 74.6 fL (80.0-100.0); RBC 3.89 mil/uL (4.50-6.00); RDW 19.8 % (10.5-14.5); WBC 8.6 thou/uL (4.0-11.0)
[2018-06-27 07:19] LABS: ALBUMIN 2.7 g/dL (3.4-5.0); CREATININE 0.7 mg/dL (0.7-1.3); POTASSIUM 4.1 mmol/L (3.5-5.1); TOTAL BILIRUBIN 0.2 mg/dL (<0.1-1.0); TOTAL PROTEIN 8.2 g/dL (6.4-8.2)
[2018-06-27 07:54] VITALS: BP 126/76
[2018-06-27 16:26] VITALS: BP 111/66
[2018-06-27 19:59] VITALS: BP 104/56
[2018-06-28 04:06] VITALS: BP 115/60
[2018-06-28 07:30] VITALS: BP 105/60
[2018-06-28 11:32] VITALS: BP 94/63
[2018-06-28 16:17] VITALS: BP 101/55
[2018-06-28 19:17] VITALS: BP 94/55
[2018-06-29 00:40] VITALS: BP 98/41
[2018-06-29 04:44] VITALS: BP 91/59
[2018-06-29 05:46] LABS: HEMATOCRIT 29.6 % (42.0-52.0); HEMOGLOBIN 9.1 gm/dL (14.0-18.0); MCH 22.9 pg (26.0-34.0); MCHC 30.6 g/dL (28.0-37.0); MCV 74.8 fL (80.0-100.0); RBC 3.96 mil/uL (4.50-6.00); RDW 19.5 % (10.5-14.5); WBC 6.4 thou/uL (4.0-11.0)
[2018-06-29 05:54] LABS: CALCIUM 8.8 mg/dL (8.5-10.1); CREATININE 0.7 mg/dL (0.7-1.3); POTASSIUM 4.8 mmol/L (3.5-5.1)
[2018-06-29 08:00] VITALS: BP 106/55
[2018-06-29 11:57] VITALS: BP 126/54
[2018-06-29 16:41] VITALS: BP 102/47
[2018-06-29 19:13] VITALS: BP 131/68
[2018-06-30 04:55] VITALS: BP 108/46
[2018-06-30 07:50] VITALS: BP 113/53
[2018-06-30 11:43] VITALS: BP 101/70
[2018-06-30] MEDS ORDERED: MS CONTIN 30 MG30 M1 PO (12:50)
[2018-06-30] MEDS ORDERED: METOPROLOL SUCC25 M1 PO (12:50)
[2018-06-30] MEDS ORDERED: NEURONTIN 300300 M1 PO (12:52)
[2018-06-30] MEDS ORDERED: ROCEPHIN 11 GM/1001 IVPB (12:56)
[2018-06-30] MEDS ORDERED: MORPHINE SULFAT15 M3 PO (12:58)
--- NOTE | 2018-07-01 17:09 | HC ---
[facility] [address] [address] CONSULTATION Name: BERMUDEZPLACIDO ELLE Room #: 359-P [facility] IN M.R.#: [id number] Admission: 06/25/18 ������������������ Attend Phys: Nish Vidal MD Discharge: 06/30/18 ������������������ Date of : 55 Report #: [id number] THIS REPORT FOR: //name// CC: Nish Vidal Wound Care Consultation Note REASON FOR CONSULTATION: Ulcers of both lower extremities and bilateral buttocks. HISTORY OF PRESENT ILLNESS: The patient is a 63-year-old gentleman with diabetes mellitus type 2 with chronic ulcerations of the lower extremities, mixed venous and arterial and also buttocks ulcer, who is known to us from previous care. He was admitted for urinary tract infection. We are asked to see him for his wounds. PAST MEDICAL HISTORY: The patient is a 63-year-old gentleman with obesity, diabetes mellitus type 2, COPD and a spinal cord injury rendering him immobile. He has had chronic nonhealing ulcers of lower extremities, mixed venous and arterial, also buttocks ulcers. We are asked to see him for these wounds. He is admitted for urinary tract infection. ALLERGIES: No known drug allergies. SOCIAL HISTORY: The patient has been using Silvadene on the wounds at his previous care facility. MEDICATIONS: Include citalopram, Lasix, Ellipta, multiple vitamins, vitamin C, cholestyramine, Protonix, tamsulosin, trazodone, Zofran, Levsin, NovoLog insulin, Voltaren, zinc, gabapentin, baclofen, metoprolol, diltiazem, and clopidogrel. REVIEW OF SYSTEMS: The patient is relatively immobile. PHYSICAL EXAMINATION: GENERAL: Shows a chronically ill-appearing gentleman who is alert, pleasant and conversant. VITAL SIGNS: Stable. He is afebrile. LUNGS: Respirations are unlabored. HEART: Shows regular rate and rhythm. SKIN: There are no wounds of the upper extremities. The patient has abdominal incision, which are healed. Examination of the buttocks shows superficial stage 3 ulcerations of the right and left buttock, which appears mostly healed. These are treated with Silvadene and Xeroform dressing. Examination of the lower extremities shows chronic stage 3 ulceration of the right posterior heel with chronic granulation tissue, which easily bleed. These are relatively clean without cellulitis. Examination of the left posterior leg shows a long 10 cm x [facility] [address] [place] [address] CONSULTATION Name: PLACIDO BERMUDEZ JR Room #: 359-P [facility] IN ..#: [id number] Admission: 06/25/18 ������������������ Attend Phys: Nish Vidal MD Discharge: 06/30/18 ������������������ Date of : 55 Report #: [id number] 2.5 cm chronic ulceration, also relatively superficial chronic granulation tissue, treated with Silvadene and Xeroform. These appear to be mixed venous and arterial. Both wounds are dressed with Silvadene, Xeroform and a Kerlix wrap. IMPRESSION: 1. Obesity. 2. Diabetes mellitus type 2 with lower extremity skin ulcers. 3. Immobility due to spinal cord injury. 4. Right buttock stage 2 pressure ulcer, superficial. 5. Left buttock stage 3 pressure ulcer, relatively superficial. 6. Chronic right heel stage 3 pressure ulcer. 7. Ulceration of left posterior leg. These leg ulcers appear to be a mixed arterial and venous. PLAN: We will continue with current wound care that he had at his facility with Silvadene, Xeroform and Kerlix wrap for the buttock ulcers in the leg ulcers. He is planned to be discharged back to his facility soon. ��������������������������������������������� <ELECTRONICALLY SIGNED> ���������������������������������������� By: Collin Chapin MD ��������������������������������������������� 07/01/18 1709 1633 0855 Collin Chapin MD /nt
== END 2018-06-30 16:21 | DRG 871 ==
LOC: ER 15:21 → EROBS 17:26 → 3W 17:26
PROVIDERS: Internal Medicine; Nurse Practitioner; ADMIT Internal Medicine
DX: A41.9 Sepsis, unspecified organism (principal); L89.323 Pressure ulcer of left buttock, stage 3; E43 Unspecified severe protein-calorie malnutrition; N39.0 Urinary tract infection, site not specified; G82.20 Paraplegia, unspecified; J44.9 Chronic obstructive pulmonary disease, unspecified; I50.9 Heart failure, unspecified; G89.4 Chronic pain syndrome; F32.9 Major depressive disorder, single episode, unspecified; K59.00 Constipation, unspecified; M10.9 Gout, unspecified; M19.90 Unspecified osteoarthritis, unspecified site; G47.00 Insomnia, unspecified; I48.2 Chronic atrial fibrillation; E11.51 Type 2 diabetes mellitus with diabetic peripheral angiopathy without gangrene; N40.1 Benign prostatic hyperplasia with lower urinary tract symptoms; N31.9 Neuromuscular dysfunction of bladder, unspecified; R33.8 Other retention of urine; D50.9 Iron deficiency anemia, unspecified; E11.622 Type 2 diabetes mellitus with other skin ulcer; L89.312 Pressure ulcer of right buttock, stage 2; I11.0 Hypertensive heart disease with heart failure; E66.9 Obesity, unspecified; E11.42 Type 2 diabetes mellitus with diabetic polyneuropathy; T14.8XXA Other injury of unspecified body region, initial encounter; X58.XXXA Exposure to other specified factors, initial encounter; K21.9 Gastro-esophageal reflux disease without esophagitis; E11.40 Type 2 diabetes mellitus with diabetic neuropathy, unspecified; Z79.4 Long term (current) use of insulin; Z68.33 Body mass index [BMI] 33.0-33.9, adult; Y93.89 Activity, other specified; Y92.89 Other specified places as the place of occurrence of the external cause; Y99.8 Other external cause status; Z93.3 Colostomy status
CPT/HCPCS: 10879

== ENCOUNTER 2018-09-18 10:02 | Inpatient (IN) | payer OTHER ==
[2018-09-18] VITALS (10 sets, daily range): BP systolic 92–107; BP diastolic 46–66
[~2018-09-18] VITALS: Ht 185.4 cm; Wt 127.4 kg
--- NOTE | ~2018-09-18 | H ---
[facility] [address] [place] [place] [address] HISTORY AND PHYSICAL Name: AIDANPLACIDO ALMEIDA Room #: 238-P ADM IN M.R.#: [id number] Admission: 09/18/18 Attend Phys: Nish Vidal MD Discharge: Date of : 55 Report #: [id number] THIS REPORT FOR: //name// CC: Nish Vidal MD DATE OF SERVICE: 09/18/2018 CHIEF COMPLAINT: Decreased level of consciousness. HISTORY OF PRESENT ILLNESS: This is one of several [facility] admissions for this 63-year-old paraplegic male who was brought by the paramedics from his long-term facility for a reduced level of consciousness. He has been refusing his wound care and basic hygiene. The facility has an ant (insect) infestation, but the patient has refused to leave his bed in order to allow complete removal of the ants. With decreased level of consciousness, the paramedics were called. They reported finding ants on him when they transported him to the Emergency Room. In the Emergency Room, the ants were removed. He is a paraplegic who refuses quite a bit of his care. He has chronic wounds of both legs and some in the sacral area as well. In the Emergency Room, he was found to have bilateral lower lobe infiltrates on chest x-ray as well as grossly abnormal urinalysis to implicate pneumonia and an infection in the urinary tract as causes for his septic presentation. PAST MEDICAL HISTORY: Significant for COPD, CHF, AFib, chronic pain syndrome, depression, paraplegia, constipation, gout and dyspnea. He has chronic wounds of both lower extremities. He had a cardiac arrest in 02/2017 with MRSA in his nares of 09/2017. He was admitted here from 06/25/2018-06/30/2018 for sepsis from urinary tract with atrial fibrillation and a rapid ventricular rate. He had chronic arterial wounds on both lower extremities. He responded to IV Rocephin and IV fluids as well as metoprolol to control his rate. CURRENT MEDICATIONS: Taken from his [facility] order sheets: Tylenol 500 mg every 8 hours as needed for pain, albuterol 0.83% by nebulizer every 6 hours as needed for shortness of breath, ascorbic acid 500 mg once daily, atorvastatin 40 mg daily, baclofen 10 mg 4 times daily for muscle spasms, calcium alginate to both buttock wounds daily, cholestyramine 1 packet daily for hyperlipidemia, citalopram 10 mg at bedtime for depression, bovine powder applied to the penis twice daily, Diltiazem 240 mg ER capsule/24 hours one daily for AFib, diphenhydramine 50 mg at bedtime as needed for insomnia, gabapentin 300 mg at bedtime for neuropathy, Imodium AD as needed for diarrhea, lactobacillus capsules by mouth as a probiotic once daily, metoprolol extended release 25 mg once daily, moisture barrier to the buttocks and coccyx twice daily, morphine sulfate 15 mg every 4 hours as needed for pain levels 6-10; [address] [address] HISTORY AND PHYSICAL Name: PLACIDO BERMUDEZ JR Room #: 238-P [facility] IN ..#: [id number] Admission: 09/18/18 Attend Phys: Nish Vidal MD Discharge: Date of : 55 Report #: [id number] Contin extended release 15 mg tablets, 3 tablets twice daily for chronic pain; multiple vitamin tablets, NovoLog by sliding scale, pantoprazole 40 mg once daily, Silvadene cream applied to his leg wounds daily, tamsulosin at bedtime for BPH, trazodone 100 mg at bedtime for insomnia, umeclidinium bromide aerosol powder 6.25 mcg inhaled once daily for COPD, camphor/mineral oil/tannic acid/zinc 6.6% ointment to the skin every 24 hours as needed for itching, diclofenac sodium 1% gel 4 grams daily for pain, Zofran 4 mg 3 times a day for nausea. In the Emergency Room, he developed acute respiratory failure and required intubation. OBJECTIVE: GENERAL: He is sedated on a ventilator. LUNGS: Clear. CARDIOVASCULAR: Heart tones are normal and the rhythm is regular. At times, he appears to have a 2:1 atrial flutter on the monitor. ABDOMEN: Soft and nontender. EXTREMITIES: Lower extremities are in PRAFO boots. The dressings were not removed. ASSESSMENT: 1. Acute respiratory failure. 2. Severe sepsis. 3. Urinary tract infection. 4. Bilateral lower lobe healthcare-acquired pneumonia. 5. Chronic nonhealing lower extremity wounds. 6. Chronic nonhealing buttock wounds. 7. Other multiple medical problems as mentioned above. PLAN: He is in the Intensive Care Unit, he is under the care of the critical care/pulmonary medicine service. He is on a ventilator and sedated. He is receiving antibiotics. By: [id number] Oswaldo Munoz MD /nt
[~2018-09-18 10:02] MED LIST changes: +METOPROLOL SUCC25 M1 PO; +ROCEPHIN 11 GM/1001 IVPB
[2018-09-18 10:36] LABS: URINE BLOOD 3+ (Negative); URINE CLARITY CLOUDY; URINE COLOR YELLOW; URINE GLUCOSE-RANDOM* NEGATIVE (Negative); URINE KETONES NEGATIVE (Negative); URINE LEUKOCYTES 3+ (Negative); URINE NITRITE NEGATIVE (Negative); URINE PROTEIN (DIPSTICK) 3+ (Negative)
[2018-09-18 10:38] LABS: ICTOTEST (BILI CONFIRMATORY) Negative (Negative); URINE BILIRUBIN NEGATIVE (Negative)
[2018-09-18 10:46] LABS: CALCIUM 9.3 mg/dL (8.5-10.1); CREATININE 1.4 mg/dL (0.7-1.3); POTASSIUM 4.7 mmol/L (3.5-5.1)
[2018-09-18 10:46] LABS: AMORPHOUS URATES Moderate /LPF (None Seen); SQUAMOUS 0-3 Few /LPF (0-3); URINE WBC >25 Many /HPF (0-5)
[2018-09-18 10:47] LABS: CASTS None Seen /LPF (None Seen)
[2018-09-18 10:51] LABS: ABSOLUTE NEUTROPHILS 10.3 thou/uL (1.4-8.2); BASOPHILS 0.2 % (0.0-2.0); EOSINOPHILS 0.1 % (0.0-3.0); HEMATOCRIT 35.3 % (42.0-52.0); HEMOGLOBIN 10.8 gm/dL (14.0-18.0); MCH 23.5 pg (26.0-34.0); MCHC 30.6 g/dL (28.0-37.0); MCV 76.9 fL (80.0-100.0); MONOCYTES 11.8 % (1.0-8.0); PLATELET COUNT 214 thou/uL (150-400); POLYS 81.9 % (36.0-66.0); RBC 4.59 mil/uL (4.50-6.00); RDW 20.1 % (10.5-14.5); WBC 12.5 thou/uL (4.0-11.0)
[2018-09-18 10:52] LABS: TOTAL BILIRUBIN 0.6 mg/dL (<0.1-1.0); TOTAL PROTEIN 9.3 g/dL (6.4-8.2)
[2018-09-18 12:03] LABS: BE(vivo) -1.6 mmol/L (-2 to +3); PCO2 57.3 mmHg (35.0-45.0); PO2 100.3 mmHg (80.0-100.0); sO2 96.7 % (92.0-98.0)
[2018-09-18 12:04] LABS: pH 7.274 (7.360-7.450)
[2018-09-18 13:46] LABS: BE(vivo) -2.7 mmol/L (-2 to +3); HCO3 27.1 mmol/L (22.0-26.0); PO2 65.9 mmHg (80.0-100.0); sO2 86.5 % (92.0-98.0)
--- NOTE | 2018-09-18 15:29 | EKG ---
[address] [place] [place] [address] ELECTROCARDIOGRAM REPORT Name: PLACIDO BERMUDEZ Room #: 170-4 ADM IN M.R.#: [id number] Admission: 09/18/18 Attend Phys: Oswaldo Munoz MD Discharge: Date of : 55 Report #: [id number] THIS REPORT FOR: //name// [facility] ED Test Date: 2018-09-18 Test Time: 10:30:16 Pat Name: PLACIDO BERMUDEZ Department: Room: 170 Gender: M Gis Database Administrator: FRANK : 1955 Requested By: Louis Roca Order Number: [id number] MD: Desean Werner Measurements Intervals [place] Rate: 112 P: NE: QRS: -7 QRSD: 99 T: 28 QT: 354 QTc: 484 Interpretive Statements Atrial fibrillation Inferior infarct, old Poor R wave progression Compared to ECG 06/25/2018 15:55:24 No significant change was found Electronically Signed On 09-18-2018 15:28:49 CDT by Desean Werner [email or web address] <ELECTRONICALLY SIGNED> By: Desean Werner MD, [facility] 09/18/18 1528 103 29 Desean Werner MD, [facility] /EPI
[2018-09-18] MEDS ORDERED: LIPITOR40 MG PO (16:30)
--- NOTE | 2018-09-18 16:41 | NUR ---
VASCULAR ACCESS CONSULTED FOR PICC PLACEMENT. PT'S LABS,MEDS,HISTORY,ORDER AND CONSENT VERIFIED. PT INTUBATED. ATTEMPTED TAMMIE CEPHALIC BUT CATH WOULD NOT PASS SHOULDER AREA. TAMMIE BASILIC WAS WIDELY PATENT WITH USG, 5FR TL PICC TRIMMED TO 45CM INSERTED TO 4CM EXTERNAL PER HOSPITAL P&P. 1ST CXR SHOWED PICC CROSSING CHEST. POWER FLUSHED AND REPOSITIONED 2ND CXR CONFIRMED CAJ. PICC RELEASED TO RENÉE RUBI PER PROTOCOL
[2018-09-18 17:03] LABS: BE(vivo) -0.9 mmol/L (-2 to +3); HCO3 25.6 mmol/L (22.0-26.0); PO2 146.4 mmHg (80.0-100.0); pH 7.319 (7.360-7.450); sO2 98.7 % (92.0-98.0)
[2018-09-18 21:52] LABS: APTT 28.3 Seconds (24.5-32.8); FIBRINOGEN 544.9 mg/dL (210-360); INR 1.1; PROTIME 11.8 Seconds (9.3-11.4)
[2018-09-18 22:28] LABS: CALCIUM 8.4 mg/dL (8.5-10.1); CREATININE 1.2 mg/dL (0.7-1.3)
[2018-09-19] VITALS (49 sets, daily range): BP systolic 98–132; BP diastolic 52–78
[2018-09-19 01:49] LABS: ABSOLUTE NEUTROPHILS 10.9 thou/uL (1.4-8.2); BASOPHILS 0.1 % (0.0-2.0); EOSINOPHILS 0.1 % (0.0-3.0); HEMATOCRIT 34.3 % (42.0-52.0); HEMOGLOBIN 10.3 gm/dL (14.0-18.0); LYMPHOCYTES 2.1 % (24.0-44.0); MCH 23.1 pg (26.0-34.0); MCV 76.7 fL (80.0-100.0); MONOCYTES 5.9 % (1.0-8.0); PLATELET COUNT 200 thou/uL (150-400); POLYS 91.8 % (36.0-66.0); RBC 4.48 mil/uL (4.50-6.00); RDW 19.5 % (10.5-14.5); WBC 11.9 thou/uL (4.0-11.0)
[2018-09-19 01:57] LABS: CALCIUM 8.8 mg/dL (8.5-10.1); CREATININE 1.3 mg/dL (0.7-1.3); POTASSIUM 4.3 mmol/L (3.5-5.1)
[2018-09-19 05:13] LABS: BE(vivo) -3.7 mmol/L (-2 to +3); PCO2 36.5 mmHg (35.0-45.0); PO2 129.7 mmHg (80.0-100.0); pH 7.377 (7.360-7.450); sO2 98.5 % (92.0-98.0)
--- NOTE | 2018-09-19 05:33 | NUR ---
PATIENT ARRIVED TO THE UNIT AT APPROXIMATELY 1999. NOTIFIED DR. TORRES AND RECEIVED ORDERS TO INITIATE SEPSIS PROTOCOL. PATIENT IS ON THE VENTILATOR AND IS NOTED TO BE PARAPLEGIC WITH MOVEMENT IN THE UPPER EXTREMITIES. PATIENT'S SON UPDATED ON THE CARE PLAN. PATIENT NOTED TO HAVE SEVERAL WOUNDS, EXCORIATION, AND DENUDED SKIN ON THE BUTTOCKS AND BLE'S. PATIENT STARTED ON PROPOFOL, FENTANYL, AND LEVOPHED AND VS REMAINED STABLE. NO ACUTE EVENTS OCCURRED DURING THIS SHIFT. HOURLY ROUNDING COMPLETED AND PATIENT MONITORED CLOSELY.
[2018-09-19 05:58] LABS: HEMATOCRIT 32.5 % (42.0-52.0); MCH 23.7 pg (26.0-34.0); MCHC 30.8 g/dL (28.0-37.0); RBC 4.23 mil/uL (4.50-6.00); RDW 19.9 % (10.5-14.5); WBC 9.3 thou/uL (4.0-11.0)
[2018-09-19 06:08] LABS: CALCIUM 9.1 mg/dL (8.5-10.1); CREATININE 1.3 mg/dL (0.7-1.3); POTASSIUM 4.5 mmol/L (3.5-5.1)
--- NOTE | 2018-09-19 10:23 | NUR ---
PT RESIDES AT [facility] FAXED CLINICAL UPDATE SPOKE WITH [facility] IN ADM TO INQUIRE ABOUT PT'S DPOA PAPERS AND THEY DO NOT HAVE ANY RECORD OF DPOA ASSIGNED. DCP TO FOLLOW.
--- NOTE | 2018-09-19 10:46 | NUR ---
[facility] WITH [facility] IN ADM ASKED IF THEY HAVE DPOA PAPERS FOR PT AND THEY DO NOT. DCP TO FOLLOW.
--- NOTE | 2018-09-19 11:05 | NUR ---
If unable to extubate and start diet in next 48hr, recommend start Pivot 1.5 to reach goal rate 50ml/hr
--- NOTE | 2018-09-19 14:29 | NUR ---
INITIAL ASSESSMENT: Pt evaluated for d/c planning needs. Reviewed chart and spoke with nurse. Pt is a [facility] resident at [facility]. Spoke with audience coordinator at [facility]. Pt has been resident there and they are able to accept pt back on d/c from hospital. Called Pt's son Luis Enrique and left message. Will remain available to assist as needed.
--- NOTE | 2018-09-19 14:55 | NUR ---
@ APPROX 1455, WHILE I WAS AT [facility]UNCH PER REPORT FROM SANJUANA OLSEN, DAVID RN AND GUY RN, PT "COUGHED OUT" ETT TUBE. PT IMMEDIATELY PUT ON NRB, SATS IN THE HIGH 90'S- 100 , DR DILLARD PAGED IMMEDIATELY, BLOOD GAS OBTAINED AND COMMUNICATED TO DR DILLARD, NO NEW ORDERS RECIEVED. DR CLAY ALSO MADE AWARE OF THIS EVENT.
--- NOTE | 2018-09-19 16:18 | HC ---
[facility] [address] [address] CONSULTATION Name: PLACIDO BERMUDEZ JR Room #: 238-P ADM IN M.R.#: [id number] Admission: 09/18/18 Attend Phys: Nish Vidal MD Discharge: Date of : 55 Report #: [id number] THIS REPORT FOR: //name// CC: Nish Vidal DATE OF SERVICE: 09/18/2018 PULMONARY CONSULTATION REFERRING PHYSICIAN: 1. Dr. Roca. 2. Dr. Munoz. REASON FOR REFERRAL: Acute respiratory failure. HISTORY OF PRESENT ILLNESS: The patient is a 63-year-old half-way patient who was brought to the ED with acute mental status change. The patient was found to be dyspneic and was eventually intubated. A pulmonary consultation was requested. The patient resides at the [facility]. He has multiple medical problems including COPD, history of alcohol withdrawal, severe peripheral vascular disease with chronic wounds, and a past history of cardiac arrest. He has a history of spinal cord injury resulting in progressive weakness. He is predominantly a wheelchair bound. History is mostly obtained from the records, as currently the patient is intubated. According to the records, the patient's facility had an infestation of ants. The patient had refused to be moved from his bed. There were ants on the patient according to the EMS. Chest x-ray shows mild right lower lobe infiltrates, possible left lower lobe infiltrates along with cardiomegaly. PAST MEDICAL HISTORY: As mentioned above. Cervical spine fall injury following a fall at C4 resulting in a fracture in 2008, it appears as if he has suffered a partial paralysis, chronic lower extremity pressure wounds involving his gluteal area, atrial fibrillation, COPD, diabetes mellitus, history of cardiac arrest in the past, gout, benign prostatic hypertrophy, depression, osteoarthritis, chronic kidney disease, gastroesophageal reflux disease, hypertension, past history of tobacco use, atrial fibrillation, chronic pain syndrome, chronic constipation, past history of marijuana use, diabetes mellitus type 2. PAST SURGICAL HISTORY: As mentioned above including colostomy with reversal for diverticulitis. [facility] [address] [place] [address] CONSULTATION Name: PLACIDO BERMUDEZ Room #: 238-P ADM IN M.R.#: [id number] Admission: 09/18/18 Attend Phys: Nish Vidal MD Discharge: Date of : 55 Report #: [id number] ALLERGIES: None to medications. MEDICATIONS FROM THE FACILITY: Include acidophilus, Celexa, Incruse Ellipta, Centrum Silver, multivitamins, Questran, Protonix, Flomax, trazodone 100 mg once a day, Zofran, Levsin 0.125 mg once a day, nebulized albuterol q.i.d. p.r.n., insulin supplements, Voltaren gel, zinc supplements, Tylenol p.r.n. FAMILY HISTORY: Noncontributory. SOCIAL HISTORY: Notable for past history of tobacco use, and I believe, he has been smoking up to recently, [facility]. No history of alcohol use. REVIEW OF SYSTEMS: Deferred, as patient is intubated. PHYSICAL EXAMINATION: VITAL SIGNS: Temperature is 99.5 degrees Fahrenheit, pulse is 110, respiratory rate is 16, blood pressure 100/49 mmHg, saturation 98%. HEENT: Normocephalic, atraumatic. He is orally intubated. NECK: Supple, without any lymphadenopathy or thyromegaly. CHEST: Breath sounds are fair with few scattered crackles in the bases. No wheezes. CARDIOVASCULAR: Normal S1, S2. There are no murmurs or gallop. There is no JVD. There is no carotid bruit. Pulses are 2+/4+ bilaterally. ABDOMEN: Soft, nontender, no organomegaly or masses felt. GENITOURINARY: Deferred. RECTAL: Deferred. EXTREMITIES: There is no edema, cyanosis or clubbing. NEUROLOGICAL: Deferred as the patient is sedated. LABORATORY DATA: Chest x-ray shows ET tube approximately 2 cm above the willi, mild bibasilar interstitial infiltrates. Procalcitonin level is 8.3. UA shows moderate bacteria. Lactic acid is 1.0. Troponin is normal. Electrolytes are normal except for creatinine of 1.4. Sodium 135, bicarbonate is 28. Liver enzymes are grossly unremarkable. WBC 12,500, hemoglobin is normal. No evidence of bandemia. Lymphopenia is present. Arterial blood gas revealed pH 7.17, pCO2 of 76, pO2 of 65 on FiO2 of 30%. IMPRESSION: 1. Nuwwd-vs-tqhlifl hypercapnic hypoxic respiratory failure in this 63-year-old white male with multiple medical problems. Etiology likely related to chronic obstructive pulmonary disease exacerbation, possible sleep related breathing disorder and pneumonia. 2. Mild bilateral infiltrates, presumed nosocomial pneumonia. 3. Chronic obstructive pulmonary disease, severity unknown, exacerbation. 4. Spinal cord injury, history suggests a cervical spine injury at C4 with some [facility] [address] [place] [address] CONSULTATION Name: PLACIDO BERMUDEZ Room #: 238-P [facility] IN M.R.#: [id number] Admission: 09/18/18 Attend Phys: Nish Vidal MD Discharge: Date of : 55 Report #: [id number] evidence of lower extremity weakness, wheelchair bound. 5. Atrial fibrillation. 6. Chronic pain syndrome. 7. Progressive muscle weakness and debility. 8. Chronic lower extremity wound due to severe peripheral vascular disease, nonhealing, pressure ulcers involving the sacrum. 9. Permanent atrial fibrillation, had been on chronic anticoagulation. 10. Diabetes mellitus type 2. 11. Gastroesophageal reflux disease. 12. History of depression. RECOMMENDATION: Agree with broad-spectrum antibiotics to cover for nosocomial infections given his recent stay. Bronchodilators, corticosteroids, DVT and GI prophylaxis. Obtain blood cultures including sputum, blood and urine. The patient will benefit from wound consultation and followup. Thank you for this consultation. Critical care time 1 hour. <ELECTRONICALLY SIGNED> By: Martinez Kasper MD 09/19/18 1618 [id number] Martinez Kasper MD /nt
[2018-09-19 16:49] LABS: URINE BILIRUBIN NEGATIVE (Negative); URINE BLOOD 2+ (Negative); URINE CLARITY SL CLOUDY; URINE COLOR YELLOW; URINE GLUCOSE-RANDOM* NEGATIVE (Negative); URINE KETONES NEGATIVE (Negative); URINE NITRITE-REFLEX NEGATIVE (Negative); URINE PROTEIN (DIPSTICK) 1+ (Negative); URINE SPECIFIC GRAVITY 1.025 (1.005-1.035); URINE UROBILINOGEN 0.2 E.U./dl (0.2-1.0)
[2018-09-19 16:53] LABS: URINE LEUKOCYTES-REFLEX 2+ (Negative)
[2018-09-19 17:04] LABS: URIC ACID CRYSTALS 0-3 Few /LPF (None Seen); URINE WBC-REFLEX >25 Many /HPF (0-5)
[2018-09-19 17:05] LABS: CASTS None Seen /LPF (None Seen); SQUAMOUS 0-3 Few /LPF (0-3); URINE RBC 3-10 Few /HPF (0-2)
[2018-09-19 17:42] LABS: BE(vivo) -4.1 mmol/L (-2 to +3); PCO2 32.8 mmHg (35.0-45.0); PO2 76.9 mmHg (80.0-100.0); pH 7.402 (7.360-7.450); sO2 95.6 % (92.0-98.0)
--- NOTE | 2018-09-19 19:50 | NUR ---
ASSUMED CARE @ 0700 09/19/18, PT ASSESSMENTS AND VSS COMPLETE PER ICU PROTOCOL. PT INITIALLY ON THE VENT, SEDATED WITH PROPOFOL AND FENTANYL. PT IS EXTUBATED, ON HI FLOW @ 6L, SATS IN THE HIGH 90'S. PT ABLE TO FOLLOW COMMANDS TO BEST ABILITY. PT AFIB ON THE MONITOR, HE DOES HAVE HX OF AFIB, HE HAD AN EPISODE OF AFIB RVR DURING THE CPAP TRIAL WHILE HE WAS STILL INTUBATED. DR CLAY, ORDERS A CARDIZEM BOLUS AND DRIP. THIS IS INITIATED. REILLY IN PLACE, GOP NOTED. PLAN OF CARE - CONT TO MONITOR.
[2018-09-20] VITALS (29 sets, daily range): BP systolic 98–152; BP diastolic 55–77
[2018-09-20 05:14] LABS: BE(vivo) -3.3 mmol/L (-2 to +3); HCO3 20.1 mmol/L (22.0-26.0); PCO2 30.6 mmHg (35.0-45.0); pH 7.436 (7.360-7.450)
[2018-09-20 05:47] LABS: BASOPHILS 0.1 % (0.0-2.0); HEMATOCRIT 30.5 % (42.0-52.0); HEMOGLOBIN 9.5 gm/dL (14.0-18.0); LYMPHOCYTES 5.1 % (24.0-44.0); MCH 23.6 pg (26.0-34.0); MCV 75.9 fL (80.0-100.0); MONOCYTES 5.3 % (1.0-8.0); PLATELET COUNT 192 thou/uL (150-400); POLYS 89.5 % (36.0-66.0); RBC 4.02 mil/uL (4.50-6.00); RDW 19.9 % (10.5-14.5); WBC 6.7 thou/uL (4.0-11.0)
--- NOTE | 2018-09-20 05:52 | NUR ---
END OF SHIFT NOTE: RECEIVED REPORT FROM OFFGOING NURSE AND ASSUMED PATIENT CARE AT 1900. PATIENT AAOX4 AND VERY PLEASANT. PATIENT NOTED TO BE ON CARDIZEM DRIP. PATIENT'S HR INCREASED TO GREATER THAN 150 AND SUSTAINED. INCREASED THE CARDIZEM DRIP AND NOTIFIED MD WHEN IT DID NOT COME DOWN. RECEIVED ORDER FOR METOPROLOL. AFTER RECEIVING METOPROLOL, PATIENT'S VS REMAINED STABLE AND NO OTHER ACUTE EVENTS OCCURRED. PATIENT MONITORED CLOSELY AND ALL ASSESSMENTS COMPLETED AND CHARTED PER PROTOCOL.
[2018-09-20 05:55] LABS: CALCIUM 8.5 mg/dL (8.5-10.1); CREATININE 1.1 mg/dL (0.7-1.3); POTASSIUM 4.3 mmol/L (3.5-5.1)
--- NOTE | 2018-09-20 11:00 | HC ---
[facility] [address] [place] [address] CONSULTATION Name: AIDANPLCAIDO ALMEIDA Room #: 238-P ADM IN M.R.#: [id number] Admission: 09/18/18 Attend Phys: Nish Vidal MD Discharge: Date of : 55 Report #: [id number] THIS REPORT FOR: //name// CC: Nish Vidal DATE OF SERVICE: 09/19/2018 WOUND CARE CONSULTATION PERSONAL PHYSICIAN: Dr. Vidal. CHIEF COMPLAINT: Left lower extremity venous leg ulcers -- chronic and fungal rash in the gluteal region. HISTORY OF PRESENT ILLNESS: This is a 63-year-old paraplegic male who was brought to the Emergency Department from a [facility] facility for altered mental status. The patient, supposedly, over the past several days has been refusing to have wound care performed on his leg and his gluteal region. The patient has had a previous history of stage 4 decubitus ulcers in the sacral region, which have resolved. The patient has chronic venous insufficiency with chronic ulcerations on bilateral lower extremities; however, the right lower extremity supposedly has resolved, but the left lower extremity has gotten worse according to the wound care nurse. The patient is currently intubated in the ICU. The patient is unable to give any history given the fact the patient is now intubated and sedated. Records were reviewed. All the current information was obtained. PAST MEDICAL HISTORY: Significant for COPD, CHF, atrial fibrillation, chronic pain syndrome, paraplegia, venous insufficiency with chronic ulcerations on bilateral lower extremities, the right now resolved. History of sacral decubitus ulcer stage 4, now resolved. CURRENT MEDICATIONS: Multiple, I reviewed the patient's medication list. DRUG ALLERGIES: None. SOCIAL HISTORY: The patient currently is in a rehab facility. FAMILY HISTORY AND REVIEW OF SYSTEMS: Unobtainable because of the patient's sedated state. PHYSICAL EXAMINATION: VITAL SIGNS: The patient is afebrile. BP is 106/63. The rest of the vitals are stable. GENERAL: This is an intubated and sedated white male who appears chronically ill. [facility] [address] [place] [address] CONSULTATION Name: PLACIDO BERMUDEZ Room #: 238-P [facility] IN .R.#: [id number] Admission: 09/18/18 Attend Phys: Nish Vidal MD Discharge: Date of : 55 Report #: [id number] HEENT: Normocephalic, atraumatic. Mucous membranes are dry. Endotracheal tube is in place. Pupils are round and sluggish. Sclerae white. NECK: Supple, nontender. LUNGS: Slightly diminished breath sounds heard throughout. HEART: Irregularly irregular. ABDOMEN: Soft, nontender. EXTREMITIES: The patient moves all extremities spontaneously. Bilateral heels are intact. Evaluation of right lower extremity reveals no open ulcerations noted. There is scar tissue on the posterior calf region from previous ulcerations, which have now healed. Distal pulses are 1+. Evaluation of left lower extremity reveals multiple full-thickness ulcerations limited to breakdown of subcutaneous tissue in the posterior calf region, 100% slough filled, with moderate serosanguineous drainage noted with slight odor. There is no significant undermining or tunneling. Allegra-wound slightly macerated. There is 1+ edema in the left lower extremity. Left heel is intact. Distal pulses are 1+. Evaluation of sacrococcygeal and gluteal region reveals a fungal rash with significant excoriation. There are no signs of any pressure ulcerations that are acute at this time. The area is all blanchable. NEUROLOGIC: Cranial nerves 2-12 grossly intact. Motor and sensory grossly intact. LABORATORY VALUES: White count 9.3, hemoglobin 10.0, albumin 3.0. IMPRESSION: 1. Chronic ulceration, left lower extremity, posterior calf region, limited to breakdown of subcutaneous tissues without overt signs of infection. 2. Venous insufficiency with mild peripheral edema -- chronic. 3. Fungal rash with excoriation to the sacrococcygeal and bilateral gluteal regions. 4. Respiratory failure, currently requiring mechanical ventilation. 5. Protein-calorie malnutrition -- moderate with an albumin of 3.0. 6. Generalized debility. PLAN: At this time, we will start Silvadene, Xeroform and ABDs, left lower extremity, changes daily. We will use Kerlix and Gabriele from toes to knee for control of mild edema. The patient will be placed in heel protection boots to be worn at all times. We will have the patient on a low air loss mattress and have him be turned every 2 hours. We will start the patient on Lotrisone cream to the buttocks and sacrococcygeal region twice daily. Leave this open to air. Once the patient is able, we will try to maximize his protein supplementation for healing. Once the patient is able, we will utilize physical and occupational therapy for strengthening. We will continue to follow the patient. <ELECTRONICALLY SIGNED> By: Kelvin Bridges MD 09/20/18 1100 [id number] Kelvin Bridges MD /nt
--- NOTE | 2018-09-20 13:19 | NUR ---
ASSUMED CARE @ 0700 09/20/18, PT ASSESSEMENTS AND VSS COMPLETE PER ICU PROTOCOL. PT ALERT AND ORIENTED X4, PT ABLE TO FOLLOW COMMANDS TO BEST ABILITY. PT A-FIB ON THE MONITOR, PT DID HAVE AN EPISODE OF A-FIB RVR AND A ONETIME ORDER OF LOPRESSOR WAS ORDERED, PT ABLE TO TOLERATE, PT STILL ON THE CARDIZEM GTT. PT ON A HEART HEALTHY DIET, ABLE TO TOLERATE DIET, REILLY IN PLACE, GOP NOTED. ORDERS RECIEVED TO TRANSFER OUT TO ICU. REPORT GIVEN TO CHAGO RUBI. PT TRANSPORTED, NO COMPLICATIONS NOTED. CASSIUS RUBI RECIEVES PT FROM MD. PLAN OF CARE- CONT TO MONITOR.
--- NOTE | 2018-09-20 14:09 | NUR ---
Carline Deleon from [facility] came to visit with patient today. Updated on care. Apparently ant problem in room at [facility] has been fumigated since patient in hospital. [facility] reports patient stays in his room mostly at facility. Plan return to facility once stable.
--- NOTE | 2018-09-20 17:33 | NUR ---
PT TRANSFERED FROM ICU. RECEIVED PRN PAIN MED FOR RIGHT SHOULDER PAIN WITH PARTIAL RELIEF. CONTACT ISOLATION MAINTAINED. IV ABX GIVEN WILL CONTINUE TO MONITOR.
[2018-09-21] VITALS (9 sets, daily range): BP systolic 133–180; BP diastolic 73–115
--- NOTE | 2018-09-21 03:55 | NUR ---
ASSUMED PT'S CARE AT 191; PT. ON BED; AOX4; C/O PAIN OVER SHOULDERS; BACK; NO PRN PAIN MEDICATION SCHEDULED TIME; ST. UNDERSTANDING; DURING ASSESSMENT C/O PAIN; 09/24; NEW SCHEDULED PAIN MEDICATION ORDERED; IV CARDIZEM CHANGE TO PO PER ORDERED; PAIN RE-ASSESSMENT ST. PAIN 06/24; REQUESTED PRN PAIN MEDICATION AT 2300; MEDICATION GIVEN; RE-ASSESSMENT ST. DECREASE PAIN; NOT ABLE TO REST THROUGH THE NIGHT DUE NOT CONFORTABLE BED; REQUESTED TO BE RE-POSITIONED ABOUT Q45MIN; NOT COMFORTABLE POSITION FOUND; AFIB HEART RYTHM THROUGH THE NIGHT; O2 ABOVE 90%; O2 TITRATE; 97% ON RA; ASSESSMENT CHARGED FOLLOWING POC; MONITORING; WILL PASS ON REPORT.
--- NOTE | 2018-09-21 19:05 | HC ---
[facility] [address] [place] [address] CONSULTATION Name: BERMUDEZPLACIDO ELLE Room #: 213-P ADM IN M.R.#: [id number] Admission: 09/18/18 Attend Phys: Nish Vidal MD Discharge: Date of : 55 Report #: [id number] THIS REPORT FOR: //name// CC: Nish Vidal DATE OF SERVICE: 09/19/2018 INFECTIOUS DISEASES CONSULTATION REASON FOR CONSULTATION: I was asked to evaluate concerning sepsis and pneumonia with respiratory failure. HISTORY OF PRESENT ILLNESS: The patient is a 63-year-old senior living resident who was brought in through the Emergency Room with acute change in mental status and hypoxia. He required intubation and mechanical ventilation. He had bibasilar infiltrates. In addition, he has been treated for chronic wounds to his lower extremities. There was some report of insect infestation involving his bed. He denied any chest pain. He self-extubated today. He remains on nonrebreather oxygen mask. He says he has been coughing up a fair amount, but could not describe the color. He has had no pleuritic chest pain. Continues to have pain in his joints from chronic arthritis. No nausea, vomiting or diarrhea. He has indwelling Kern catheter. Wounds remained dressed involving the lower extremities. PAST MEDICAL HISTORY: Cervical spine injury with C4 fracture and incomplete paralysis. Chronic lower extremity pressure wounds, atrial fibrillation, COPD, diabetes, gout, prostatic hypertrophy, depression, osteoarthritis, chronic kidney disease, gastroesophageal reflux, hypertension, atrial fibrillation, previous ME, chronic pain syndrome, arthritis, constipation, previous colostomy for diverticulitis status post reversal. ALLERGIES: None. MEDICATIONS: As noted on his MAR including vancomycin and Zosyn, which was started in the Emergency Room. FAMILY HISTORY: Noncontributory. SOCIAL HISTORY: Past smoker, no significant alcohol intake. REVIEW OF SYSTEMS: Ten-point review was negative other than what is described above. PHYSICAL EXAMINATION: VITAL SIGNS: Currently, afebrile, hemodynamically stable. GENERAL: He was alert and cooperative. He was on a nonrebreather mask and able [facility] [address] [place] [address] CONSULTATION Name: PLACIDO BERMUDEZ Room #: 213-P [facility] IN M.R.#: [id number] Admission: 09/18/18 Attend Phys: Nish Vidal MD Discharge: Date of : 55 Report #: [id number] to converse. SKIN: With wounds that were just dressed on both lower extremities. EYES: Without scleral icterus. MOUTH: Without mucositis. NECK: Supple. He had no palpable adenopathy. LUNGS: Crackles in the bases bilaterally, most predominant in the left. CARDIOVASCULAR: Regular without appreciable murmur, gallop or rub. ABDOMEN: Soft, nontender, no hepatosplenomegaly or mass appreciated. Indwelling Kern catheter without external genitalia lesion or mass. RECTAL: Deferred. EXTREMITIES: Without edema. NEUROLOGIC: Upper extremity strength normal. Very weak in the lower extremities. LABORATORY STUDIES: Reviewed. Chest x-ray reviewed. Cultures still pending. MRSA screen was positive. IMPRESSION: 1. Acute respiratory failure with basilar infiltrates most consistent with healthcare-associated pneumonia. He has persistent left lower lobe infiltrate. 2. Chronic obstructive pulmonary disease with exacerbation. 3. Incomplete paralysis of lower extremities after C4 fracture. 4. Coronary artery disease with atrial fibrillation. 5. Chronic arthritis and chronic pain syndrome. 6. Diabetes. 7. Gastroesophageal reflux. RECOMMENDATIONS: We will continue current antibiotic program. Check vancomycin level. Await blood and sputum culture results. Await urine culture results. Continue pulmonary hygiene and oxygen supplementation. Control blood glucose levels. Continue offloading and wound care. We will adjust his antibiotics pending further culture results. <ELECTRONICALLY SIGNED> By: Jak Araujo MD 09/21/18 [id number] Jak Araujo MD /nt
--- NOTE | 2018-09-21 19:38 | NUR ---
ASSUMED PATIENT CARE AT 0700. A/O X4. C/O GENERLIZED PAIN. MAX ASSISTED FOR TURN. GENERLIZED EDEMA. BLI CALF WOUND PICS TAKEN. DRESSING CHANGED PER ORDER. PATIENT HR UP TO 160 AFIB IN AM. CARDIZEM GTT STARTED. POOR APPETITE. VSS. NOT TOWARDS POC GOALS.
[2018-09-22 00:38] VITALS: BP 154/84
[2018-09-22 05:01] VITALS: BP 154/91
--- NOTE | 2018-09-22 08:03 | NUR ---
ASSUMED PT'S CARE AT 1936; PT. ON BED; AOX4; RESTING WITH EYES CLOSED; DURING ASSESSMENT C/O PAIN; 09/24; SCHEDULED PAIN MEDICATION GIVEN; HS MEDICATION GIVEN; THROUGH THE NIGHT REQUESTED TO BE TURNED FREQUENTLY; C/O UNCOMFORTABLE BED; ABLE TO REST AFTER MIDNIGHT WITH EYES CLOSED; CARDIZEM GTT ADJUSTED PER HR; PRN PAIN MEDICATION GIVEN EARLY ON THE MORNING; ASSESSMENT CHARGED; FOLLOWING POC; PASSED ON REPORT.
[2018-09-22 09:12] VITALS: BP 157/97
[2018-09-22 16:00] VITALS: BP 157/93
[2018-09-22 19:18] VITALS: BP 156/94
--- NOTE | 2018-09-22 20:26 | NUR ---
PATIENT ALERT AND ORIENTED AND NEEDS HELP TO TURN IN BED. HAD LARGE BM AFTER DINNER.
[2018-09-23 05:21] VITALS: BP 156/99
--- NOTE | 2018-09-23 07:44 | NUR ---
RECEIVED PT'S CARE AT 1940; PT. ON BED; AOX4; C/O PAIN; DURING ASSESSMENT PT. C/O SHOULDER & BACK PAIN; REPOSITIONED; REPOSITIONED SEVERAL TIMES THROUGH THE NIGHT; HS MEDICATION GIVEN; PER ORDER JULIO CÉSAR CHINCHILLA D/C; DRESSING CHANGED PER ORDER; HR ON THE 80s-90s; PRN MEDICATION GIVEN X1 DURING THE NIGHT; ASSESSMENT CHARGED; FOLLOWING POC; PASSED ON REPORT.
[2018-09-23] MEDS ORDERED: ZOSYN 3.373.375 GM/1 IV (10:10)
[2018-09-23] MEDS ORDERED: VANCOMYCIN1 GM/2002 IV (10:11)
[2018-09-23] MEDS ORDERED: METOPROLOL SUCC50 MG PO (10:12)
[2018-09-23] MEDS ORDERED: CARDIZEM CD240 MG PO (10:13)
[2018-09-23] MEDS ORDERED: MS CONTIN15 MG PO (10:14)
[2018-09-23] MEDS ORDERED: PERCOCET PO (10:15)
[2018-09-23] MEDS ORDERED: MELATONIN5 M1 PO (10:17)
[2018-09-23] MEDS ORDERED: PREDNISONE 10 M10 MG PO (10:17)
[2018-09-23 12:00] VITALS: BP 156/89
--- NOTE | 2018-09-23 12:42 | NUR ---
All parties anticipating dc back to snf at [facility] this afternoon after his iv zosyn dose. They are arranging a stretcher van. Dc meeting/event planner has faxed his orders and they can continue to provide his iv atb under his skilled medicare benefits. He has a picc line in place. Chart copy in progress. Awaiting final confirmation on pickup time.
--- NOTE | 2018-09-23 14:48 | NUR ---
ASSUMED CARE AT 0700,SHIFT ASSESSMENT DONE, MEDS GIVEN, VSS. REPORTED PAIN, PRN PAIN MEDS GIVEN. DISCHARGE ORDER RECEIVED. PT IS GOING TO BE ON IV ANTIBIOTICS, PICC LINE TO RIGHT UPPER IN PLACE. CHRONIC REILLY IN PLACE. REPORT CALLED TO FACILTIY. PATIENT LEFT AT 1445 WITH TRANPORATION.
== END 2018-09-23 14:47 | DRG 871 ==
LOC: ER 10:02 → EROBS 13:24 → ICU 13:24 → 2N 09-20 12:59
PROVIDERS: Emergency Medicine; Internal Medicine; Internal Medicine Pulmonary Disease; Pediatrics; Specialist; ADMIT Internal Medicine
PROC: 0BH17EZ Insertion of Endotracheal Airway into Trachea, Via Natural or Artificial Opening (ICD-10-PCS; principal; 2018-09-18)
PROC: 5A1935Z Respiratory Ventilation, Less than 24 Consecutive Hours (ICD-10-PCS; principal; 2018-09-18)
PROC: B548ZZA Ultrasonography of Superior Vena Cava, Guidance (ICD-10-PCS; principal; 2018-09-18)
PROC: 02HV33Z Insertion of Infusion Device into Superior Vena Cava, Percutaneous Approach (ICD-10-PCS; principal; 2018-09-18)
DX: A41.9 Sepsis, unspecified organism (principal); J96.22 Acute and chronic respiratory failure with hypercapnia; J18.1 Lobar pneumonia, unspecified organism; J96.21 Acute and chronic respiratory failure with hypoxia; J44.1 Chronic obstructive pulmonary disease with (acute) exacerbation; G82.20 Paraplegia, unspecified; L97.229 Non-pressure chronic ulcer of left calf with unspecified severity; E44.0 Moderate protein-calorie malnutrition; J44.0 Chronic obstructive pulmonary disease with (acute) lower respiratory infection; I13.0 Hypertensive heart and chronic kidney disease with heart failure and stage 1 through stage 4 chronic kidney disease, or unspecified chronic kidney disease; I50.9 Heart failure, unspecified; G89.4 Chronic pain syndrome; F32.9 Major depressive disorder, single episode, unspecified; K59.00 Constipation, unspecified; M10.9 Gout, unspecified; N40.0 Benign prostatic hyperplasia without lower urinary tract symptoms; M19.90 Unspecified osteoarthritis, unspecified site; G47.00 Insomnia, unspecified; K21.9 Gastro-esophageal reflux disease without esophagitis; E11.40 Type 2 diabetes mellitus with diabetic neuropathy, unspecified; R65.20 Severe sepsis without septic shock; E11.22 Type 2 diabetes mellitus with diabetic chronic kidney disease; K59.09 Other constipation; T14.8XXA Other injury of unspecified body region, initial encounter; I48.2 Chronic atrial fibrillation; N18.9 Chronic kidney disease, unspecified; E11.51 Type 2 diabetes mellitus with diabetic peripheral angiopathy without gangrene; I87.2 Venous insufficiency (chronic) (peripheral); G83.9 Paralytic syndrome, unspecified; L89.159 Pressure ulcer of sacral region, unspecified stage; N30.90 Cystitis, unspecified without hematuria; I25.10 Atherosclerotic heart disease of native coronary artery without angina pectoris; D64.9 Anemia, unspecified; Y95 Nosocomial condition; Z79.01 Long term (current) use of anticoagulants; Z79.4 Long term (current) use of insulin; Z68.37 Body mass index [BMI] 37.0-37.9, adult; I25.2 Old myocardial infarction; X58.XXXA Exposure to other specified factors, initial encounter; Y93.89 Activity, other specified; Y92.89 Other specified places as the place of occurrence of the external cause; Y99.8 Other external cause status; Z87.891 Personal history of nicotine dependence
CPT/HCPCS: 10078; 10081; 27000